=== PATIENT | male | born 1970 | race Caucasian/White ===

== ENCOUNTER 2016-05-03 23:40 | Inpatient (IN) | payer MEDICARE, MEDICAID ==
[~2016-05-03] VITALS: Ht 182.9 cm; Wt 99.8 kg
[~2016-05-03 23:40] MED LIST: AMBIEN10 MG PO; BENZONATATE200 MG PO; BROVANA15 MCG/2 M INH; CELEXA10 MG PO; COREG12.5 MG PO; CYCLOBENZAPRINE10 MG PO; DULCOLAX5 MG PO; FLUTICASONE PRO16 GM NASAL; GLUCOTROL 5 MG T5 MG PO; IPRAT-ALBUT 0.5-3 ML UPD; LACTINEX GRANUL1 PCK PO; LASIX40 MG PO; MIRALAX17 GM PO; MUCINEX DM ER1 EAC1 PO; NITROSTAT0.4 MG SL; NORVASC5 MG PO; OMNICEF300 MG PO; PHOSLO667 MG PO; PLAVIX75 MG PO; PRILOSEC20 MG PO; PRINIVIL20 MG PO; PULMICORT0.5 MG/21 UPD; REGLAN10 MG PO; SENSIPAR60 MG PO; STOOL SOFTENER100 M1 PO; ZITHROMAX250 MG PO
[2016-05-04] VITALS (14 sets, daily range): BP systolic 132–169; BP diastolic 63–99; Ht 182.9 cm; Wt 99.8 kg
--- NOTE | 2016-05-04 01:02 | NUR ---
PT ARRIVED TO THE FLOOR @ 23:45 05/03/16 VIA EMS STRETCHER, AWAKE, ALERT, ORIENTED, O2 PLACED ON 2.5 LPM. PTS ADMISSION WAS DELAYED R/T ADMISSION DEPT NOT PUTTING PT IN COMPUTER FOR OVER AN HOUR. WE ARE PLACING A HANDS FREE CALL LIGHT ON PTS BED SINCE PT IS A QUAD. OTHERWISE, NO ACUTE NEEDS AT THIS TIME. CONTINUE TO MONITOR CLOSELY.
--- NOTE | 2016-05-04 03:58 | NUR ---
ORDERS ADDED PER SHELLY BASILIO, STAKING ENGINEER FOR RENAL. PT IS RESTING COMFORTABLY AT THIS TIME, IN NO ACUTE DISTRESS. PTS EYES ARE CLOSED, RESPIRATIONS EVEN AND UNLABORED, PT DOES HAVE AN OCCAISIONAL COUGH, PRODUCIVE. CONTINUE TO MONITOR PT CLOSELY.
[2016-05-04] MEDS ORDERED: ULTRAM50 MG PO (04:48)
[2016-05-04 07:21] LABS: ALBUMIN 2.4 g/dL (3.4-5.0); ANION GAP 9.5 mmol/L (8-16); BILIRUBIN - TOTAL 0.4 mg/dL (0.2-1.3); CALCIUM 8.3 mg/dL (8.5-10.1); CARBON DIOXIDE 31.9 mmol/L (21.0-32.0); CREATININE - SERUM 5.3 mg/dL (0.6-1.3); POTASSIUM - SERUM 3.4 mmol/L (3.5-5.1); PROTEIN - SERUM 6.3 g/dL (6.4-8.2)
[2016-05-04 07:35] LABS: CREATINE KINASE 364 UL (21-232)
--- NOTE | 2016-05-04 08:04 | NUR ---
0750- AM ROUNDING, PT LAYING IN BED ON BACK WITH EYES CLOSED RESTING. PT IS ALERT AND ORIENTED. ON O2 AT 2.5L VIA NC. IV SEEN TO RIGHT HAND THAT IS SALINE LOCKED AND PATENT. ON LOVENOX FOR DVT PREVENTION. LEFT ARM RESERVE FOR AVF, PT DIALYZES ON M, W, AND F. HEP B +. 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 PER REPORT FROM CORPORATE CLAIMS EXAMINER NURSE RHIANNA, RHIANNA PUT IN WOUND CARE CONSULT FOR VERY REDDENED AREA ON BOTTOM. PT IS CURRENTLY REQUESTING CHEERIOS FOR BREAKFAST. CALLED DIETRY. WILL CONTINUE TO MONITOR. 0800- PAGED DR. WADE TO INFORM HIM OF PTS TROPONIN WHICH WAS 0.15 AND TO ALSO SEE ABOUT GETTING PT A LAXATIVE. XRAY CALLED AND STATED THAT THEY DID CHEST XRAY AROUND [address] ARCHER ORDERED ANOTHER ONE. WILL AWAIT CALL BACK AND SEE IF HE STILL WANTS CHEST XRAY.
--- NOTE | 2016-05-04 10:23 | NUR ---
WOUND CARE CONSULT: PT HAS NUMEROUS SKIN ISSUES NOTED FOLLOWS: 1- LEFT HEEL STAGE 1 PRESSURE INJURY 1.5CM X 1.5CM NON-BLANCHABLE 2- LEFT PLANTAR FOOT 2.5CM X 2.5CM CALLOUSED AREA - PROBABLE OLD PRESSURE INJURY 3- LEFT LATERAL FOOT/LOWER LEG NUMEROUS SCABS 4- LEFT BUTTOCK (AT ISCHIUM) - PINK - HEALED PRESSURE INJURY *HIGH RISK AREA 5- SACRUM STAGE 1 PRESSURE INJURY 5CM X 8CM NON-BLANCHABLE 6- RIGHT LATERAL FOOT/HEEL DISCOLORED BUT BLANCHABLE 7- BILATERAL HANDS/ARMS HAVE SCRATCHES AND SCABS RECOMMEND AIR OVERLAY MATTRESS D/T 1-HIGH RISK FOR FURTHER BREAKDOWN 2-INCONTINENT OF B&B 3-QUAD RECOMMEND TURN Q2 SCHEDULE MEPILEX SACRAL DRESSING TO PROTECT STAGE 1 PRESSURE INJURY MEPILEX DRESSINGS TO PROTECT HEELS KEEP HEELS BRIDGED WOUND CARE WILL CONTINUE TO MONITOR
[2016-05-04 11:31] LABS: CKMB 2.5 U/L (0.0-3.6); CREATINE KINASE 345 UL (21-232)
[2016-05-04 11:32] LABS: TROPONIN-I 0.161 ng/mL (0.000-0.060)
--- NOTE | 2016-05-04 11:33 | NUR ---
COMMERCIAL FISHING VESSEL OPERATOR CHECKED PTS BS PER ORDER AND NOTIFIED ME THAT PTS BS WAS 28. INITATED HYPOGYLCEMIC PROTOCOL AND GAVE 25ML OF DEXTROSE IV. WILL RECHECK PTS BS.
--- NOTE | 2016-05-04 11:43 | NUR ---
PT IS ALERT AND ORIENTED. ABLE TO DRINK APPLE JUICE AND EAT CRACKER. RECHECKED PTS BS WHICH IS 68. WILL CONTINUE WITH HYPOGLYCEMIC PROTOCOL AND CONTINUE TO MONITOR.
--- NOTE | 2016-05-04 12:08 | NUR ---
FSBS IS 78, NO FURTHER ACTION NECESSARY PER PROTOCOL. PT IS EATING LUNCH TRAY NOW. WILL CONTINUE TO MONITOR.
--- NOTE | 2016-05-04 13:13 | NUR ---
UPON CHANGING PT AFTER BOWEL MOVEMENT. EXCORIATION SEEN TO SACRUM AREA AND ON LEFT HEEL. WOUND CARE NURSE BRYAN IN PTS ROOM WITH ME ASSESSING PT. 1) LEFT HEEL STAGE 1 PRESSURE ULCER, 1.5CM X 1.5CM WITH NON-BLANCHABLE SKIN. 2) LEFT PLANTAR FOOT 2.5CM X 2.5CM CALLOUSED AREA. 3) LEFT LATERAL FOOT/LOWER LEG HAS MULTIPLE SCABS 4) LEFT BUTTOCK IS PINK WITH HEALED PRESSURE UCLER SEEN 5) SACRUM STAGE 1 PRESSURE UCLER 5CM X 8CM THAT IS NON-BLANCHABLE. 6) RIGHT LATERAL FOOT/HEEL DISCOLORED BUT BLANCHABLE. 7) BIALTERAL HANDS/ARMS HAVE SCRATCHES AND SCABS MEPILEX SACRUM APPLIED TO PROTECT STAGE 1 PRESSURE UCLER. MEPILEX DRESSING APPLIED TO BILATERAL HEELS TO PROTECT HEELS. HEELS RAISED ON PILLOW
--- NOTE | 2016-05-04 13:24 | NUR ---
DONAL MENEZES STATED PT WAS ACTING A LITTLE OUT OF IT. WENT AND CHECKED PTS BS, PTS FSBS WAS 46. GAVE PT 25ML OF DEXTROSE PER PROTOCOL AND PAGED SHELLY, NURSE PRACIONER. AWAITING CALL BACK.
--- NOTE | 2016-05-04 13:28 | NUR ---
Patient Name: JOSÉ ASHBY Admission Status: Elective Accout number: [id number] Admission Date: 05-03-2016 : 1970 Admission Diagnosis: Attending: ELEANOR Current LOS: 1 Anticipated DC Date: Planned Disposition: Home with Home Health Primary Insurance: MEDICARE A & B PLANNED EXTERNAL PROVIDER: [employer] [facility] [place] OFFICE Discharge Planning Comments: * Is the patient Alert and Oriented? Yes 0 * How many steps to enter\exit or inside your home? NONE 0 * PCP NONE 0 * Pharmacy [facility] [place] OR [facility] MAIL ORDER 0 * Preadmission Environment Home with Family 0 * ADLs Partial Dependent 0 * Partial ADLs (Assistance needed) Bathing Dressing Medication Management Toileting Transfers 0 * Equipment Bedside [facility]mode Hospital Bed Nebulizer Wheelchair 0 * Other Equipment [employer] [place] PATIENT - MEDICAL EQUIPMENT PROVIDER PREFERENCE 0 * List name and contact numbers for known caregivers / representatives who currently or will assist patient after discharge: BROTHER ALCOCER, 0 * Community resources currently utilized Home Health 0 * Please name any agencies selected above. [employer] [facility], 0 * Additional services required to return to the preadmission environment? No 0 * Can the patient safely return to the preadmission environment? Yes 0 * Has this patient been hospitalized within the prior 30 days at any hospital? No 0 CM MET WITH PT IN ROOM TO DISCUSS DISCHARGE PLANNING AND NEEDS. PT APPEARS TO BE VERY SLEEPY AND DRIFTS OFF TO SLEEP AFTER ANSWERING EACH QUESTION AND REQUIRES CM TO AWAKEN PT AGAIN. PT REPORTS LIVING AT HOME DEPENDENT ON HIS BROTHER AND HOME HEALTH AIDE. PT HAS HOSPITAL BED, WHEELCHAIR (MANUAL) BEDSIDE COMMODE AND NEBULIZER. PROVIDER IS [employer] [place] PATIENT. CM DISCUSSED AVAILABILITY OF HOME HEALTH, REHAB SERVICES AND MEDICAL EQUIPMENT. PT DENIES NEED FOR REHAB SERVICES, REPORTS HE WILL GO HOME AT DISCHARGE AND HOME HEALTH TO RESUME. PT HAS OUTPATIENT DIALYSIS ON M//, EARLY SHIFT, AT [facility]. PT'S BROTHER TRANSPORTS PT TO AND FROM DIALYSIS. PT REPORTS HIS BROTHER WILL PICK HIM UP AT DISCHARGE. CM CALLED BROTHER ALCOCER, , LEFT MESSAGE ASKING FOR RETURN CALL. CM CALLED [facility] [address] (VISITING NURSES), , WAS ADVISED THAT PT DOES NOT HAVE SKILLED OR UNSKILLED SERVICES THROUGH [facility]. CM CALLED [facility], , SPOKE TO JOI WHO VERIFIED PT IS ACTIVE WITH [facility] [place] FOR NURSING, PHYSICAL THERAPY AND AIDE SERVICES. CM SPOKE TO LETTY OF [employer] WHO ADVISED THAT PT WAS IN RADIO MECHANIC HELPER CARE IN [facility] FOR ABOUT A YEAR BEFORE GOING TO LIVE WITH HIS BROTHER. ADULT PROTECTIVE [employer]ICES HAS CHECKED INTO PT'S HOME SITUATION. HOME HEALTH HAS BEEN UNSUCCESSFUL IN GETTING PT TO AGREE TO PRISON CARE AGAIN IN A RETIREMENT. LETTY ADVISED THAT SHE THINKS THAT PT RIDES THE [employer] BUS (MEDICAID TRANSPORT) TO AND FROM DIALYSIS. DR. MOLINA HAS BEEN FOLLOWING HOME HEALTH ORDERS. CM FAXED UPDATE TO [employer] AT [phone]. TO RESUME HOME HEALTH AT DISCHARGE, NOTIFY [employer] AT [phone], FAX DISCHARGE INFORMATION TO [employer] AT [phone]. CM TO FOLLOW AND ASSIST NEEDED. Oncology Physician Assistant: Donnie Jarvis
--- NOTE | 2016-05-04 13:36 | NUR ---
RECHECKED PTS BS, PTS FSBS IS 92. PT IS ALERT AND DRINKING APPLE JUICE. DR. WADE ON UNIT AND WAS NOTIFIED. DR. WADE INSTRUCTED DONAL MENEZES TO GIVE PT APPLE JUICE. APPLE JUICE GIVEN. WILL CONTINUE TO MONITOR.
--- NOTE | 2016-05-04 13:50 | NUR ---
DR. ARCHER ON UNIT. INFORMED HIM OF PTS B/S DROPPING. DR. ARCHER STATED THAT TO START HIM ON D10 AT 20ML/HR. NEW ORDERS RECEIVED. WILL CONTINUE TO MONITOR.
--- NOTE | 2016-05-04 14:04 | NUR ---
DISCHARGE PLANNING FOLLOW UP NOTE: CM RECEIVED RETURN CALL FROM GUERA ASHBY, . GUERA PROVIDED HIS 'S NUMBER FOR CONTACT IF NEEDED: JESSICA ASHBY, . GUERA REPORTS THAT HE AND HIS ASSIST PT WITH CARE AT HOME. THEY ARE ABLE TO TRANSPORT PT IN GUERA'S CAR NEEDED. GUERA WILL HAVE A FRIEND TO HOSPITAL CHIEF FINANCIAL OFFICER PT FOR TRANSPORT HOME AT DISCHARGE. THEY HAVE A CHRIS LIFT AT HOME TO ASSIST WITH LIFTING AT HOME. PT'S CHAIR TIME IS APPROXIMATELY 0900 AM FOR DIALYSIS. PT TAKES THE MEDICAID BUS FROM [facility] ON [address] TO AND FROM DIALYSIS. PT DID NOT GO TUESDAY BECAUSE PT WAS SICK AND GUERA THOUGHT THAT DIALYSIS STAFF DID NOT WANT PT THERE TO MAKE OTHER PT'S SICK. CM DISCUSSED SENIOR CARE REHAB AND PLACEMENT OPTIONS. GUERA REPORTS THAT PT WILL NOT CONSENT TO [facility] AND THEY PLAN TO BRING PT BACK HOME AND CONTINUE HIS CARE AT HOME. TO RESUME HOME HEALTH AT DISCHARGE, NOTIFY [facility] AT [phone], FAX DISCHARGE INFORMATION TO [facility] AT [phone]. CM TO FOLLOW AND ASSIST NEEDED. RANDAL OSMAN, CASE MANAGEMENT
--- NOTE | 2016-05-04 14:06 | NUR ---
D10 STARTED ORDERED AT 20CC/HR. WILL CONTINUE TO MONITOR.
--- NOTE | 2016-05-04 14:10 | NUR ---
PATIENT PATHWAYS - Patient's In-Center HD unit is [facility] on a Mon/Wed/Fri per notes in chart. Records forwarded to the clinic for their charts. MADONNA PRL
--- NOTE | 2016-05-04 14:26 | NUR ---
PT USED CALL LIGHT AND STATED HE DIDN'T FEEL RIGHT. CHECKED PTS BS. FSBS IS 39. FOLLOWED HYPOGLYCEMIC PROTOCOL AND GAVE PT ORAL GLUCOSE GEL AND A CUP OF APPLE JUICE. PT IS ON D10 AT 20CC/HR. WILL RECHECK PTS BS AND CONTINUE TO MONITOR.
--- NOTE | 2016-05-04 14:38 | NUR ---
RECHECKED PTS BS, PTS FSBS WAS 42. GAVE 25ML OF DEXTROSE PER PROTOCOL AND TALKED TO DR. ARCHER THAT IS ON UNIT. DR. ARCHER STATED TO TURN PTS IV FLUID (D10) UP TO 40CC/HR. WILL RE-CHECK PTS BS AND CONTINUE TO MONITOR.
--- NOTE | 2016-05-04 14:57 | NUR ---
FSBS RECHECK 86. NO ACTION NEEDED AT THIS TIME. PT IS VERY DROWSY BUT WAKES EASILY TO VOICE. D10 INFUSING VIA R.HAND PIV WITH DRSG CDI AND SWAB CAPS IN USE. WILL CPOC AND MONITER CLOSELY.
--- NOTE | 2016-05-04 15:22 | NUR ---
1200- PT TURNED TO RIGHT SIDE WITH HELP OF DONAL MENEZES.
--- NOTE | 2016-05-04 15:36 | NUR ---
RECHECKED PTS BS WHICH IS 45. CONTINUED PROTOCOL AND GAVE PT 25ML OF DEXTROSE. PT DRINKING APPLE JUICE AND EATING SANDWICH. WILL RECHECK BS.
--- NOTE | 2016-05-04 15:46 | NUR ---
INCREASED PTS IV FLUID (D10) TO 100CC/HR ORDERED BY DR. ARCHER. WILL CONTINUE TO MONITOR.
--- NOTE | 2016-05-04 16:20 | NUR ---
PT PLACED ON FIRST STEP OVERLAY MATTRESS.
--- NOTE | 2016-05-04 16:27 | NUR ---
CHECKED PTS BS, 42. GAVE PT 25ML OF DEXTROSE PER PROTOCOL. WILL RECHECK PTS BS. PT IS LAYING IN BED WITH EYES OPEN. STATED HE FEELS OK. WILL CONTINUE TO MONITOR.
--- NOTE | 2016-05-04 16:55 | NUR ---
CALLED REPORT TO ICU. SPOKE WITH JEN RANGEL. GAVE HER REPORT AND INFORMED HER OF THE SITUAION WITH PTS BS. TRIED TO GIVE CLAIRE A FULL REPORT ON PT AND HX INFORMATION AND CLAIRE STATED TO "JUST TELL ME MORE ABOUT THE BLOOD SUGAR SITUAION", SO I CONTINUED TO TELL HER ABOUT PTS BS SITUATION. WILL PROCEED TO TRANSFER PT TO ICU AND CONTINUE TO MONITOR.
--- NOTE | 2016-05-04 17:31 | NUR ---
1700- CALLED REPORT TO ICU AND SPOKE JEN RANGEL. GAVE REPORT AND INFORMED HER OF WHY PT IS BEING SENT TO ICU (HYPOGLYCEMIA).
--- NOTE | 2016-05-04 17:33 | NUR ---
TRANSFERRED PT TO ICU VIA BED.
--- NOTE | 2016-05-04 17:59 | NUR ---
1715 PT RECIEVED FROM [facility] 2 VIA BED WITH AIROVERLAY MATTRESS ON BE PT IS A QUAD WITH O2 AT 2 LITERS.. FSBE DONE ON ARRIVAL AND RESULTS ARE 55.. D110 W HANGING RATE CHANGED TO 40CC/HR ON ARRIVAL DOWN FROM 100CC/HR..AND AN AMP OF 550 GIVEN INTO PIV IN RIGHT HAND.. PT IS AWAKE AND RESPONSIVE APPROPRIATLY.. AUDIBLE WHEEZES ON RESPIRATIONS.. 1800 FSBS 84 PT ASSISTED WITH DIET.. REMAINS APPROPRIATE IN RESPONSES.. WATCHING TV AT THIS TIME..
[2016-05-04 18:07] LABS: CKMB 3.1 U/L (0.0-3.6); CREATINE KINASE 344 UL (21-232)
[2016-05-04 18:18] LABS: GLUCOSE 49 mg/dL (74-106)
--- NOTE | 2016-05-04 18:18 | NUR ---
1800 WITHOUT VISITORS AT THIS TIME..
[2016-05-04 18:19] LABS: TROPONIN-I 0.135 ng/mL (0.000-0.060)
--- NOTE | 2016-05-04 19:13 | NUR ---
1900 FSBS DONE AND COVERED WITH D50 REMAINS ON D10 DRIP..
--- NOTE | 2016-05-04 19:20 | NUR ---
PACKER OPERATOR AUTOMATIC PER FLOWSHEET. PT AWAKE AND ORIENTED, VSS. TURNED FOR COUGH AND DB - STOOL NOTED, ASSIST WITH REMOVAL OF LARG AMT FORMED STOOL. DSG CHANGE TO BUTTOCKS - HEALING STAGE 2 NOTED. REPOSITIONED UP IN BED - DSG CHANGE TO B/L HEELS PER ORDERS - HEALING STAGE 2. LUNGS CTA, NO SIGN OF DISTRESS. PT ABLE TO COMMUNICATE NEEDS. ARMS CONSTRICTED TOWARD CHEST - ABLE TO STRETCH OUT WITH ASSIST. L ARM FISTULA NOTED. ROM DONE, HEELS BRIDGED, AIR OVERLAY IN USE.
--- NOTE | 2016-05-04 21:00 | NUR ---
NO VISITORS, RESTING WITH EYES CLOSED. PREV FSBS 135.
--- NOTE | 2016-05-04 21:35 | NUR ---
PT C/O SAVAGE - ADMIN PRN ULTRAM AND HS MEDS. NO DIFFICULTY SWALLOWING.
--- NOTE | 2016-05-04 21:55 | NUR ---
NEW 20GA PIV SITED TO R AC X 1 STICK. FSBS 39 - ADMIN D50 IV PER PRN ORDER. PT ASYMPTOMATIC, "JUST STARTING FEELING LIKE IT WAS LOW"..
--- NOTE | 2016-05-04 22:45 | NUR ---
TO CT VIA BED WITH ICU NURSE.
--- NOTE | 2016-05-04 23:16 | NUR ---
BACK TO ROOM
[2016-05-05] VITALS (24 sets, daily range): BP systolic 116–176; BP diastolic 46–76
--- NOTE | 2016-05-05 01:22 | NUR ---
PT REPOSITIONED UP IN BED TO R SIDE, GOOD COUGH. RECHECK FSBS 57 - ADMIN D50 IV PER PROTOCOL
--- NOTE | 2016-05-05 06:00 | NUR ---
NO VISITORS. AM LAB PENDING. SEE FSBS FLOWSHEET. PT COOPERATIVE, DENIES NEEDS.
[2016-05-05 06:09] LABS: BASOPHILS 0.1 % (0.0-2.0); EOSINOPHILS 0.1 % (0-7); HEMATOCRIT 26.1 % (42.0-54.0); HEMOGLOBIN 8.7 g/dL (13.5-17.5); IMMATURE GRANULOCYTES 0.3 % (0-5); LYMPHOCYTES 8.1 % (15-50); MCHC 33.3 g/dL (31.0-37.0); MEAN PLATELET VOLUME 9.4 fL (7.4-10.4); MONOCYTES 5.8 % (2-11); NEUTROPHILS 85.6 % (40-80); PLATELET COUNT 108 10x3/uL (130-400); WBC 6.9 10x3/uL (4.8-10.8)
[2016-05-05 06:32] LABS: ANION GAP 11.3 mmol/L (8-16); BILIRUBIN - DIRECT 0.15 mg/dL (0.00-0.30); BILIRUBIN - INDIRECT 0.25 mg/dL (0.00-1.00); BILIRUBIN - TOTAL 0.4 mg/dL (0.2-1.3); CARBON DIOXIDE 28.1 mmol/L (21.0-32.0); PHOSPHOROUS 3.1 mg/dL (2.5-4.9); POTASSIUM - SERUM 3.4 mmol/L (3.5-5.1); PROTEIN - SERUM 6.3 g/dL (6.4-8.2)
--- NOTE | 2016-05-05 07:00 | NUR ---
REC'D REPORT AND RESUMED CARE, AWAKE AND ORIENTED, VSS, FSBS 47, 1 AMP D50 GIVEN PER ORDER AND STAT LAB ORDERED, PATIENT IS PARAPLEDGIC, BLOW LIGHT IN USE, O2 VIA NC AT 2L, VSS, RIGHT ADC WITH D10 INFUSING AT 100 CC/HR, RIGHT HAND 24G SL, AIR OVERLAY MATTRESS IN USE, ASSESSMENT COMPLETE PER FLOWSHEET, REPOSITIONED TO RIGHT SIDE WITH PILLOW PROPPED TO BACK AND HEELS FLOATED, MEPILEX DRESSING B/L NOTED ON HEELS, ASSESSMENT COMPLETED PER FLOWSHEET, NO NEEDS AT THIS TIME
--- NOTE | 2016-05-05 08:30 | NUR ---
AM MEDS GIVEN AND TAKEN WITHOUT DIFFICULTY
--- NOTE | 2016-05-05 09:22 | NUR ---
NUTRITION MONITORING & EVAL PT NOW IN ICU. NURSING REPORTS PT WITH NO RECENT PO INTAKE. "TRYING TO KEEP HIS BLOOD SUGAR UP". RD FOLLOWING
--- NOTE | 2016-05-05 11:00 | NUR ---
ASSESSMENT COMPLETE NO ACUTE CHANGE FROM PREVIOUS SEE FLOWSHEET
--- NOTE | 2016-05-05 11:20 | NUR ---
HD BEGAN, FISTULA CANUALATED WITHOUT DIFFICULTY, VSS, NO NEEDS AT THIS TIME, BLOW LIGHT POSITIONED TO MOUTH FOR USE
--- NOTE | 2016-05-05 12:30 | NUR ---
D50 INFUSION INTITIATED PER ORDER AT 50 CC/HR, FSBS 47, ON HD AT THIS TIME, NOT SYMPTOMATIC, FOOD OFFERED, PEANUT BUTTER AND VALERIA CRACKERS EATEN, 1/2 CARTON MILK DRANK
--- NOTE | 2016-05-05 14:22 | NUR ---
HD COMPLTED, 3.5 L OFF, VSS, SEE FLOWSHEET, AWAKE AND ALERT, NO NEEDS AT THIS TIME
--- NOTE | 2016-05-05 14:54 | NUR ---
Mr. Leonard had bedide hemodialysis today via his left lower arm av fistula from 1120 until 1422. Average blood flow was 350 mls/minute. Net fluid removed was 3500 mls. Post vital signs were: B?P: 127/52, HR: 64, Temp: 97.9, Resps: 18.
--- NOTE | 2016-05-05 15:00 | NUR ---
ASSESSMENT COMPLETE, NO ACUTE CHANGE FROM PREVIOUS, VSS, NO SIGNS OF DISTRESS, VSS, DENIES PAIN, REPOSITONED TO LEFT SIDE WITH PILLOW PROPPED TO BACK AND HEELS FLOATED, NO OTHER NEEDS AT THIS TIME, BLOW LIGHT IN USE
--- NOTE | 2016-05-05 18:17 | NUR ---
PC TO DR SAM, NEW ORDERS GIVEN FOR ZOFRAN 4 MG IVP Q4P, AND MUCINEX DM 2 TABS BID FOR NAUSEA AND COUGHING
--- NOTE | 2016-05-05 18:48 | NUR ---
C/O OF NAUSEA, ZOFAN 4 MG IVP GIVEN PER ORDER, COOL COMPRESSES ON NECK, NO EMESIS
--- NOTE | 2016-05-05 19:00 | NUR ---
REPORT RECEIVED AND ASSESSMENT COMPLETED. SEE FLOW SHEET FOR DETAILS. PT ON D50 DRIP @ 60. BLOOD SUGAR IN THE 90'S. WILL CONTINUE TO MONITOR CLOSELY. FOR HYPO AND HYPERGLYCEMIA.
--- NOTE | 2016-05-05 21:00 | NUR ---
2100 MEDS GIVEN. FSBS WNL. NO OTHER CHANGES IN STATUS AT THIS TIME. PT REPOSITIONED FOR COMFORT. VSS. WILL MONITOR.
--- NOTE | 2016-05-05 23:00 | NUR ---
REASSESSMENT COMPLETED. SEE FLOWSHEET.
[2016-05-06] VITALS (23 sets, daily range): BP systolic 135–167; BP diastolic 50–75
--- NOTE | 2016-05-06 00:37 | NUR ---
MOST RECENT FSBS 102
--- NOTE | 2016-05-06 01:00 | NUR ---
VSS. FINGER STICKS STABLE IN LOW 100'S. NO OTHER CHANGES IN STATUS AT THIS TIME.
--- NOTE | 2016-05-06 03:00 | NUR ---
REASSESSMENT COMPLETED SEE FLOWSHEET
[2016-05-06 03:50] LABS: BASOPHILS 0.1 % (0.0-2.0); EOSINOPHILS 0 % (0-7); HEMATOCRIT 23.8 % (42.0-54.0); HEMOGLOBIN 7.9 g/dL (13.5-17.5); IMMATURE GRANULOCYTES 0.1 % (0-5); LYMPHOCYTES 10.9 % (15-50); MCHC 33.2 g/dL (31.0-37.0); MCV 87.5 fL (80.0-100.0); MEAN PLATELET VOLUME 9.6 fL (7.4-10.4); MONOCYTES 9.3 % (2-11); NEUTROPHILS 79.6 % (40-80); PLATELET COUNT 119 10x3/uL (130-400); RBC 2.72 10x6/uL (4.20-6.10); RDW 14.8 % (11.5-14.5); WBC 7.6 10x3/uL (4.8-10.8)
[2016-05-06 03:59] LABS: APTT 39.9 SECONDS (22.8-39.4); INR 1.02 (0.85-1.17); PROTIME 13.2 SECONDS (11.6-15.0)
[2016-05-06 04:00] LABS: ANION GAP 6.8 mmol/L (8-16); CALCIUM 7.6 mg/dL (8.5-10.1); CARBON DIOXIDE 32.7 mmol/L (21.0-32.0); CREATININE - SERUM 4.4 mg/dL (0.6-1.3); PHOSPHOROUS 2.3 mg/dL (2.5-4.9); POTASSIUM - SERUM 3.5 mmol/L (3.5-5.1)
--- NOTE | 2016-05-06 05:00 | NUR ---
CHLORHEXIDINE BATH GIVEN FOR AM PROCEDURE. NO OTHER CHANGES AT THIS TIME.
--- NOTE | 2016-05-06 08:03 | CN ---
PATIENT NAME:JOSÉ ASHBY MEDICAL RECORD: [id number] : 72 LOCATION:[id number] ADMIT DATE: 05/03/16 ACCOUNT: [id number] CONSULTING PHYSICIAN: YAMILET HOLBROOK MD REFERRING PHYSICIAN: CLAUDIO ARCHER MD DATE OF CONSULTATION: 05/05/2016 Surgical Consultation SURGEON: Yamilet Holbrook MD. REASON FOR CONSULTATION: IV access. HISTORY OF PRESENT ILLNESS: This 45-year-old paraplegic gentleman who was admitted with worsening pneumonia and shortness of breath. He had been sick for the last several days. He is wheezing and coughing. He has been running a fever at home. The patient is bedbound, he is quadriplegic. PAST MEDICAL HISTORY: Asthma, COPD, congestive heart failure, end-stage renal disease on hemodialysis, history of DVT, history of hypertension, coronary artery disease and quadriplegia. PAST SURGICAL HISTORY: Amputation of the toe, a fistula and stent placement. He has a HemoSplit at this time. ALLERGIES: LEVAQUIN, PENICILLIN, HYDROCODONE AND ACETAMINOPHEN. MEDICATIONS: Include Rocephin and Zithromax. SOCIAL HISTORY: He is a current everyday smoker. He is a nondrinker. FAMILY HISTORY: No family history of cardiac disease or cancer. REVIEW OF SYSTEMS: Twelve-point review of systems obtained, pertinent positives and negatives as per the HPI. PHYSICAL EXAMINATION: GENERAL: He is lying in bed. He is on nasal cannula. VITAL SIGNS: Blood pressure 140/83, pulse 68, respirations 18 and temperature 97.3. EYES: Extraocular muscles are intact. Sclerae nonicteric. EAR, NOSE AND THROAT: Mucous membranes are dry. Poor dentition. CHEST: Decreased breath sounds bilaterally with bilateral crackles. HEART: Normal sinus rhythm. No murmur. ABDOMEN: Soft, nontender and nondistended. EXTREMITIES: No cyanosis or clubbing. He does have marked contracture of all 4 extremities. LABORATORY DATA: Reviewed. Please see electronic medical record for full list of laboratory data. Chest x-ray reviewed, there is a right-sided pleural effusion with infiltrates. IMPRESSION: 1. Pneumonia. 2. Hypoxia with respiratory failure. CONSULT REPORT [id number] JOSÉ ASHBY 3. End-stage renal disease. 4. Chronic obstructive pulmonary disease. 5. Peripheral IV access insufficiency. RECOMMENDATION: Urgent placement of central venous access line. Risk and benefits reviewed with the patient. Consent obtained. TRANSINT:[id number] Voice Confirmation ID: [id number] DOCUMENT ID: [id number] YAMILET HOLBROOK MD at 0803 CC: [id number] DICTATION DATE: 05/05/16 180 DIRECTOR INBOUND SALES: 05/05/16 [address] [place] [address]
--- NOTE | 2016-05-06 08:04 | OP ---
PATIENT NAME: JOSÉ ASHBY MEDICAL RECORD: [id number] :72 LOCATION:[facility] D.2315 ADMISSION DATE:05/03/16 SURGEON: YAMILET HOLBROOK MD DATE OF OPERATION: 05/05/2016 PREOPERATIVE DIAGNOSES: Peripheral IV access insufficiency, pneumonia, chronic obstructive pulmonary disease and hypoxic respiratory failure. POSTOPERATIVE DIAGNOSES: Peripheral IV access insufficiency, pneumonia, chronic obstructive pulmonary disease and hypoxic respiratory failure. PROCEDURE PERFORMED: Ultrasound-guided right internal jugular central venous lines placement ANESTHESIA: Local. COMPLICATIONS: None. SPECIMENS: None. Case was clean. OPERATIVE COURSE: After consent was obtained, the patient was placed in the supine position in his ICU bed. A shoulder roll was placed. The patient was placed in Trendelenburg position. Timeout was taken to confirm the correct patient and procedure. The right chest and neck were prepped and draped in typical sterile fashion. Local anesthetic was administered. The right internal jugular vein was identified with the ultrasound probe. The internal jugular vein was accessed under ultrasound guidance. Blood was aspirated. The needle was removed. The angiocatheter was left in place. The wire was passed through the angiocatheter. The angiocatheter was removed. A stab incision was made with an 11-blade scalpel. The dilator was passed over the wire in a standard Seldinger fashion. Triple lumen catheter was then passed over the wire in a standard Seldinger fashion. The wire was removed. The catheter was secured to the skin with 2-0 silk suture. A Biopatch was placed as well as a sterile Tegaderm dressing. All 3 ports were aspirated and flushed. At the end of the procedure, all needle and instruments counts were correct. No complications occurred. Post-procedure chest x-ray was performed. TRANSINT:[id number] Voice Confirmation ID: [id number] DOCUMENT ID: [id number] YAMILET HOLBROOK MD at 0804 CC: [id number] DICTATION DATE: 05/05/161800 PERSONAL ATTENDANT: 05/05/16 [address] [place] [address]
--- NOTE | 2016-05-06 16:10 | NUR ---
0800 AM ASSESMENT IS COMPLETE SEE FLOW SHEET FOR FIDNINGS.. PT ON AIROVERLAY MATTRESS IN THE ICU.. THERE IS C CVL IN THE LEFT JUGULAR WITH D50W INFUSING AT 60CC/HR.. PT IS A QUAD ABLE TO MAKE NEEDS KNOWN.. 0830 CT HERE AND STATED THAT PT CT GUIDED THORACOTOMY IS HELD FOR TODAY , PT ON PLAVIX.. DR SAM IN THE UNIT AND INFORMED PLAVIX HELD BY HIM AND JANNA SNELL. 0900 WIHTOUT VISITORS AT THIS TIME.. 1000 FSBS DONE.. [address] SAM HERE AND [id number] DECREASED PER FLACO VO 1300 DIET FED TO PT AND A SMALL AMT TAKEN PT IS WITHOUT C/O AT THIS TIME... 1400 BS DONE D50 DECREASED TO 20CC 1500 WITHOUT VISITOR.. 1530 LAB DRAWN 1600 FSBS AND D50W DC AT THIS TIME///
--- NOTE | 2016-05-06 19:15 | NUR ---
REPORT RECEIVED AND CARE TAKEN OVER. INITIAL ASSESSMENT COMPLETE. PATIENT IS QUADRIPLEGIC BUT ABLE TO COMMUNICATE, CALL LIGHT DEVICE IN PLACE. IS ON OVERLAY MATTRESS. CENTRAL LINE IN RIGHT JUGULAR IS IN PLACE, DRESSING IS C/D/I. SALINE LOCKED AT THIS TIME. DENIES NEED AT THIS TIME, VSS, SEE ASSESSMENT FLOWSHEET FOR MORE DETAILS.
--- NOTE | 2016-05-06 20:00 | NUR ---
PATIENT REPOSITIONED PER REQUEST. BLOOD SUGAR TAKEN. DENIES FURTHER NEED.
--- NOTE | 2016-05-06 21:00 | NUR ---
NO VISITORS AT THIS TIME. ICE CHIPS GIVEN UPON REQUEST.
--- NOTE | 2016-05-06 23:00 | NUR ---
REASSESSMENT COMPLETE, NO ACUTE CHANGES AT THIS TIME. VSS, WILL CONTINUE TO MONITOR.
[2016-05-07] VITALS (24 sets, daily range): BP systolic 145–185; BP diastolic 57–94
--- NOTE | 2016-05-07 01:00 | NUR ---
PATIENT DENIES NEED, VSS, WILL MONITOR.
--- NOTE | 2016-05-07 03:00 | NUR ---
REASSESSMENT COMPLETE. NO CHANGES, WILL CONTINUE TO MONITOR.
[2016-05-07 04:27] LABS: BASOPHILS 0 % (0.0-2.0); EOSINOPHILS 0 % (0-7); HEMATOCRIT 23.5 % (42.0-54.0); HEMOGLOBIN 7.8 g/dL (13.5-17.5); IMMATURE GRANULOCYTES 0.2 % (0-5); LYMPHOCYTES 13.2 % (15-50); MCH 29.4 pg (26.0-34.0); MCHC 33.2 g/dL (31.0-37.0); MCV 88.7 fL (80.0-100.0); MEAN PLATELET VOLUME 9.5 fL (7.4-10.4); NEUTROPHILS 79.6 % (40-80); PLATELET COUNT 115 10x3/uL (130-400); RBC 2.65 10x6/uL (4.20-6.10); WBC 5.8 10x3/uL (4.8-10.8)
[2016-05-07 04:43] LABS: ANION GAP 10.1 mmol/L (8-16); CALCIUM 7.6 mg/dL (8.5-10.1); CARBON DIOXIDE 29.3 mmol/L (21.0-32.0)
[2016-05-07 04:45] LABS: CREATININE - SERUM 5.7 mg/dL (0.6-1.3); PHOSPHOROUS 4.1 mg/dL (2.5-4.9); POTASSIUM - SERUM 4.4 mmol/L (3.5-5.1)
--- NOTE | 2016-05-07 05:00 | NUR ---
PATIENT REPOSITIONED FOR COMFORT, DENIES NEED OR PAIN AT THIS TIME.
--- NOTE | 2016-05-07 06:39 | NUR ---
DR MORSE PAGED ABOUT INCREASING BP. STATED HE WAS OKAY WITH CURRENT BP SINCE PATIENT WILL RECEIVE DIALYSIS TODAY.
--- NOTE | 2016-05-07 09:40 | NUR ---
NUTRITION MONITORING & EVAL CHART REVIEWED. PT NPO AND OOR FOR PROCEDURE. WILL CONTINUE TO MONITOR PT PROGRESS, DIET ADVANCEMENT. RD FOLLOWING
[2016-05-07 10:57] LABS: PROTEIN - BODY FLUID 2.2 G/DL
[2016-05-07 11:17] LABS: C-PEPTIDE 10.3 ng/mL (1.1-4.4); INSULIN 32.8 uIU/mL (2.6-24.9)
[2016-05-07 12:05] LABS: EOS BF 1 %; LYMPH - BF 46 %; MACROPHAGES BF 16 %; MESOTHELIALS BF 1 %; NEUT - BF 36 %
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
[2016-05-07] MEDS ORDERED: CARDURA1 MG PO (12:44)
[2016-05-07] MEDS ORDERED: CEFUROXIME250 MG PO (12:48)
--- NOTE | 2016-05-07 12:53 | NUR ---
PATIENT'S BROTHER, GUERA ASHBY, PHONED TO CHECK ON HIS MEDICAL STATUS. HIS NURSE, TARA, SPOKE WITH HIM AND WAS ABLE TO GIVE A LIST OF HIS HOME MEDICATIONS. PATIENT'S BROTHER'S , JESSICA IS THE CAREGIVER THAT SETS UP HIS MEDS. GUERAKiet FRANKS JESSICA ASHBY [phone].
--- NOTE | 2016-05-07 16:58 | NUR ---
6159-PT NPO-TO SPECIALS/CT FOR SCHEDULED THORACENTESIS-R SIDE 1030-RETUREND TO -DR ARCHER AT BEDSIDE-REVIEWED WITH PT CURRENT TREATMENT PLAN-2 UNITS PRBC ON DIALYSIS TODAY-CONT TO MONITOR FSBS-REMAIN ON O2 AT 2L PHYSICAL THERAPY TO BEGN IN HOSPITAL TREATMENT PLAN FOR MAX ROM-NOT CONTRACTURE TO BOTH ARMS AND FISTING OF HANDS-PT STATED FEELS SEVERE MUSCLE SPASM PAIN TO ARMS WHEN EXTENDED-VERBALLY STATED THAT WAS TOLD MAY REGAIN USE OF HANDS 1230BLOOD CONSENT GIVEN VERBALLY AND WITNESSED BY 2 RN 8530-PHYSICAL THERAPY AT BEDSIDE- 9902-DIALYSIS SET UP AT [facility]-PRBC AVAILABLE TO GIVE WHILE ON DIALYSIS
--- NOTE | 2016-05-07 19:16 | NUR ---
Mr. Leonard had bedside hemodialysis today via his left arm av fistula from 1513 until 1814. Average blood flow was 300-400 mls/minute. Transfused two units of prbc's. Removed 700 mls from the prbc's as well as a net of 3500 mls. Post vital signs were: B/P: 176/83, HR: 60, Temp: 98.3, Resps: 18.
--- NOTE | 2016-05-07 19:20 | NUR ---
INITIAL ASSESSMENT COMPLETE, PATIENT IS ALERT AND ORIENTED X4, RONCHI HEARD WITH LUNG SOUNDS. PATIENT HAD RIGHT SIDED THORACENTESIS TODAY. SITE IS C/D/I. S1S2 NOTED, BOWEL SOUNDS ACTIVE. FISTULA IN LEFT FOREARM, THRILL AND BRUIT PRESENT. PERIPHERAL PULSES +2. SEE ASSESSMENT FLOWSHEET FOR MORE DETAILS. DIALYSIS IN ROOM AT THIS MOMENT FINISHING UP.
--- NOTE | 2016-05-07 21:00 | NUR ---
NIGHT MEDS GIVEN, PATIENT DENIES NEED.
--- NOTE | 2016-05-07 23:05 | NUR ---
REASSESSMENT COMPLETE, NO CHANGES FROM PREVIOUS ASSESSMENT. SEE REASSESSMENT FLOWSHEET FOR DETAILS.
[2016-05-08] VITALS (18 sets, daily range): BP systolic 16–172; BP diastolic 55–91
--- NOTE | 2016-05-08 01:00 | NUR ---
PATIENT RESTING IN BED WITH EYES CLOSED, VSS, WILL CONTINUE TO MONITOR.
--- NOTE | 2016-05-08 03:00 | NUR ---
REASSESSMENT COMPLETE, NO ACUTE CHANGES, SEE FLOWSHEET FOR DETAILS.
--- NOTE | 2016-05-08 05:00 | NUR ---
ICE GIVEN PER REQUEST, REPOSITIONED FOR COMFORT.
[2016-05-08 05:06] LABS: BASOPHILS 0 % (0.0-2.0); EOSINOPHILS 0 % (0-7); IMMATURE GRANULOCYTES 0.2 % (0-5); LYMPHOCYTES 12.2 % (15-50); MCH 28.7 pg (26.0-34.0); MCHC 33.2 g/dL (31.0-37.0); MEAN PLATELET VOLUME 9.5 fL (7.4-10.4); NEUTROPHILS 79.6 % (40-80); PLATELET COUNT 101 10x3/uL (130-400); RDW 15.4 % (11.5-14.5)
[2016-05-08 05:09] LABS: HEMATOCRIT 29.2 % (42.0-54.0); HEMOGLOBIN 9.7 g/dL (13.5-17.5); MCV 86.4 fL (80.0-100.0); RBC 3.38 10x6/uL (4.20-6.10)
[2016-05-08 05:22] LABS: ANION GAP 9.3 mmol/L (8-16); CALCIUM 7.5 mg/dL (8.5-10.1); CARBON DIOXIDE 30.8 mmol/L (21.0-32.0); CREATININE - SERUM 4.9 mg/dL (0.6-1.3); PHOSPHOROUS 3.9 mg/dL (2.5-4.9); POTASSIUM - SERUM 4.1 mmol/L (3.5-5.1)
--- NOTE | 2016-05-08 07:00 | NUR ---
REC'D REPORT FROM OUTGOING RN, PT AA&O X 4, pT SUPINE IN BED WATCHING TELEVISION, PT IS ABLE TO MAKE NEEDS KNOWN - BLOW CALL LIGHT IN PLACE FOR PT TO CONTACT RN. PT ABLE TO DENOMSTRATE USE OF BLOW CALL LIGHT.
--- NOTE | 2016-05-08 08:00 | NUR ---
ACCU CHECK AT 95 - PT VOICED NO NEEDS AT THIS TIME.
--- NOTE | 2016-05-08 08:30 | NUR ---
ASSESMENT COMPLETE - PT DENIED ANY NEEDS LAUNDRY AID AVAILABLE TO ASSIST FEEDING PT.
--- NOTE | 2016-05-08 10:00 | NUR ---
MEDICAITONS GIVEN. PT REQUESTED TO HAVE HOB LOWERED AND VOICED NO OTHER NEEDS ACCU CHECK AT 125 CONTINUE POC
--- NOTE | 2016-05-08 11:00 | NUR ---
DR. BRAMBILA AT [facility] - POS AT 98% ON 2L/NC. INSTRUCTED TO D/C O2 AND MONITOR FOR HYPOXIA - POX AT 97% ON RA. ORDERED TRANSFERR TO THE FLOOR CHANGE ACCU CHECK TO Q6 HOURS.
--- NOTE | 2016-05-08 11:20 | NUR ---
PAGED DR. BOYD TO REVIEW PULMONOLGY TRANSFER DIRECTION.
--- NOTE | 2016-05-08 11:25 | NUR ---
SPOKE TO DR. BOYD - APPOLIGIZED FOR PAGING MD - CORRECTLY PAGED DR. ARCHER - TO REVIEW DR. SAM'S REOMMENDATIONS. (CHANGE ACCU CHECK TO Q6 HOURS, STOP O2, AND TRANSFER PT TO FLOOR) DR. ARCHER AGREED TO PLAN OF CARE. TOV AND ENTERED PER POLICY.
--- NOTE | 2016-05-08 12:00 | NUR ---
PT REFUSED TO EAT LUNCH TRAY - PT STATED HE WANTED TO SLEEP - PT RESTING SUPINE EYES CLOSED RESPIRATIONS REGULAR RATE AND RHYTHM. VVS. CONTINUE POC
--- NOTE | 2016-05-08 14:00 | NUR ---
OFFERED BATH TO PT - PT DECLINED BATH - PT STATED 'I WANT TO SLEEP. I HAVE NOT SLEPT IN 3 DAYS'. CONTINUE PLAN OF CARE.
--- NOTE | 2016-05-08 14:00 | NUR ---
PT ATE ONLY PEACHES FROM LUNCH TRAY. VOICED NO OTHER CONCERNS. CONTINUE POC
--- NOTE | 2016-05-08 14:45 | NUR ---
PT C/O NAUSEA - PT VOMITED A SMALL AMOUNT. - GAVE ZOFRAN - INFORMED DR. ARCHER. PT RESTING COMFORTABLY - RT AT BESIDE FOR TREATMENT (SEE RT FLOW SHEET) PT RESTING WITH EYES CLOSED - RESPIRATIONS REG RATE AND RHYTHM. CONTINUE POC
--- NOTE | 2016-05-08 16:00 | NUR ---
I&O COMPLETE - FED PT - PT ATE 50% TRAY. PT DENIED NAUSEA - PT ASKED TO LOWER THE HOB, HE WANTES TO SLEEP. PT WATCHING TV, RESTING VOICED NO C/O
--- NOTE | 2016-05-08 19:15 | NUR ---
ASSESSMENT COMPLETE, PATIENT IS ALERT AND ORIENTED, S1S2 NOTED, O2 WAS TURNED OFF TODAY AND PATIENT SATS ARE IN HIGH 90'S WITH NO SOB. LUNG SOUNDS CLEAR, BOWEL SOUNDS ACTIVE. FEET ARE BRIDGED WITH PILLOW, FISULA IN LEFT FOREARM HAS DRESSING THAT IS C/D/I, BRUIT AND THRILL PRESENT. RIGHT IJ FLUSHED. ALL SALINE LOCKED AT THIS TIME. PATIENT DENIES NEED, CALL LIGHT IN REACH.
[2016-05-08 20:06] LABS: AFB SPECIMEN PROCESSING Concentration (())
--- NOTE | 2016-05-08 21:15 | NUR ---
MEDS GIVEN, PATIENT REQUEST SOMETHING TO EAT, SANDWHICH GIVEN. DENIES FURTHER NEED.
--- NOTE | 2016-05-08 23:00 | NUR ---
PATIENT RESTING IN BED, DENIES NEED AT THIS TIME. ALERT AND ORIENTED, LUNG SOUNDS CLEAR, S1S2 NOTED WITH A HR OF 60 ON HM. BOWEL SOUNDS ACTIVE X4. HEELS BRIDGED, PATIENT TURNED FOR COMFORT. WILL CONTINUE TO MONITOR.
--- NOTE | 2016-05-09 01:00 | NUR ---
PATIENT RESTING IN BED WITH EYES CLOSED. VSS.
[2016-05-09 03:00] VITALS: BP 126/59
--- NOTE | 2016-05-09 03:00 | NUR ---
REASSESSMENT DONE ON PATIENT. NO ACUTE CHANGES. PATIENT DENIES NEED, REPOSITIONED FOR COMFORT. WILL CONTINUE TO MONITOR.
[2016-05-09 04:43] LABS: BASOPHILS 0 % (0.0-2.0); EOSINOPHILS 0 % (0-7); HEMATOCRIT 31.4 % (42.0-54.0); HEMOGLOBIN 10.7 g/dL (13.5-17.5); IMMATURE GRANULOCYTES 0.4 % (0-5); LYMPHOCYTES 15.4 % (15-50); MCH 29.1 pg (26.0-34.0); MCHC 34.1 g/dL (31.0-37.0); MCV 85.3 fL (80.0-100.0); MEAN PLATELET VOLUME 9.7 fL (7.4-10.4); MONOCYTES 4.8 % (2-11); NEUTROPHILS 79.4 % (40-80); PLATELET COUNT 98 10x3/uL (130-400); RBC 3.68 10x6/uL (4.20-6.10); RDW 14.8 % (11.5-14.5); WBC 4.8 10x3/uL (4.8-10.8)
[2016-05-09 04:49] LABS: ANION GAP 13.3 mmol/L (8-16); CALCIUM 7.1 mg/dL (8.5-10.1); CARBON DIOXIDE 27.4 mmol/L (21.0-32.0); PHOSPHOROUS 5.2 mg/dL (2.5-4.9); POTASSIUM - SERUM 4.7 mmol/L (3.5-5.1)
--- NOTE | 2016-05-09 04:50 | NUR ---
ICE CHIPS GIVEN PER REQUEST. PATIENT REPOSITIONED FOR COMFORT. VSS, WILL MONITOR.
[2016-05-09 05:00] LABS: PLATELET ESTIMATE DECREASED
[2016-05-09 05:59] LABS: INR 0.95 (0.85-1.17); PROTIME 12.6 SECONDS (11.6-15.0)
[2016-05-09 07:00] VITALS: BP 158/63
--- NOTE | 2016-05-09 09:50 | NUR ---
0840- RECEIVED PT VIA BED FROM ICU NURSE CONNOR RN. PT IS ON A FIRST STEP OVERLAY MATTRESS. ON ROOM AIR. LEFT ARM RESERVE FOR AVF, PT DIALYZES ON M, W, AND F. IV SEEN TO RIGHT HAND THAT IS CURRENTLY SALINE LOCKED AND PATENT. RIGHT IJ SEEN THAT IS SALINE LOCKED AND PATENT, PER ICU NURSE CONNOR, IJ IS NURSE ACCESSABLE. FSBS ACHS, THE LAST ONE WAS 119. PT IS A TOTAL ASSIST (QUADRIPLEGIC). SORE SEEN TO LEFT HEEL, FEET BRIDGED ON PILLOW. BILATERAL LOWER EXTREMITIES ARE DRY, SCALY. MULTIPLE SCABS SEEN, (LEFT ARM, BILATERAL LEGS). TURNED PT AND LOOKED AT BUTTOCK AREA, BLANCHABLE REDNESS SEEN WITH WHAT APPEARS TO BE HEALED PRESSURE ULCER,TWO SMALL SKIN TEARS SEEN WITH MEASUREMENTS OF 0.5CM X 0.5CM. PT IS TURNED ON RIGHT SIDE WITH PILLOW UNDER BOTTOM. PER REPORT FROM ICU NURSE CONNOR, PT HAD THORACENTESIS ON 05/07/16 WHICH THEY PULLED 900CC OF FLUID FROM. PT IS REQUESTING THE TV TO BE TURNED ON THE ID CHANNEL AT THIS TIME. WILL CONTINUE TO MONITOR.
[2016-05-09 12:00] VITALS: BP 192/86
--- NOTE | 2016-05-09 13:41 | NUR ---
APPLIED MEPILEX TO PTS COCCYX AREA, DATED AND SIGNED. TURNED PT ON LEFT SIDE.
[2016-05-09 16:00] VITALS: BP 183/84
--- NOTE | 2016-05-09 18:01 | NUR ---
PT LAYING IN BED ON BACK WITH EYES OPEN WATCHING TV. CALL LIGHT IN USE. RESPIRATORY IN ROOM DOING BREATHING TX CURRENTLY. NO NEED AT CURRENT TIME. WILL CONTINUE TO MONITOR.
--- NOTE | 2016-05-09 18:23 | NUR ---
0810- RECEIVED REPORT FROM CONNOR IN ICU. CONNOR STATED SHE WILL DO PTS SHIFT ASSESSMENT. AWAITING PT ARRIVAL.
--- NOTE | 2016-05-09 19:51 | NUR ---
RESUMED CARE OF PT,ASKING TO BE TURN TO R. SIDE, ASKING TO BE FED CAKE,IV-R.HAND, R.IJ, ON AIR MATTRESS, RESERVED L.ARM, MEPLEX DRESSING TO BOTTOM, CALL LIGHT IN REACH, BED IS LOW, SRX2, BED ALARM ON, WILL CONTINUE TO MONITOR
[2016-05-09 20:00] VITALS: BP 164/84
--- NOTE | 2016-05-10 01:33 | NUR ---
PT AWAKE; DENIES ANY DISCOMFORT. REPOSITIONED ON TO R SIDE . MAURI CONTINUE TO MONITOR. SR UP X2, CALL LIGHT WITHIN REACH.
--- NOTE | 2016-05-10 07:24 | NUR ---
RECEIVED PT REPORT. WILL CONTINUE PLAN OF CARE. NO OTHER NEEDS AT THIS TIME. WILL CONTINUE TO MONITOR.
[2016-05-10 08:25] VITALS: BP 169/90
--- NOTE | 2016-05-10 09:27 | NUR ---
CHANGED PT'S CVL DRESSING TODAY, LAST DATE WAS 05/05 PER PROTOCOL BUT WAS FALLING OFF AT THIS TIME. ORANGE SWAB CAPS IN PLACE AT THIS TIME. WILL CONTINUE TO MONITOR.
--- NOTE | 2016-05-10 09:39 | NUR ---
PT IS ALERT. ASSESSMENT DONE PER FLOWSHEET. NO CO PAIN AT THIS TIME. WILL CONTINUE TO MONTIOR.
[2016-05-10 11:37] VITALS: BP 156/88
--- NOTE | 2016-05-10 13:45 | NUR ---
Mr. Leonard had bedside hemodialysis today via his left upper arm av fistula from 1020 until 1320. Average blood flow was 325 mls/minute. Net fluid removed was 4000 mls. Post vital signs were: B/P: 150/94, HR: 62, Resps: 20, Temp: 97.8.
--- NOTE | 2016-05-10 13:56 | NUR ---
NO SS OF DISTRESS AT THIS TIME. WILL CONTINUE TO MONITOR.
--- NOTE | 2016-05-10 14:44 | NUR ---
GRECIA CAKE WAS ORDER PER PT REQUEST, TO BE EATEN AFTER HIS HD WAS COMPLETED. NO OTHER NEEDS AT THIS TIME. WILL CONTINUE TO MONITOR.
[2016-05-10 15:19] LABS: PROINSULIN 39.4 pmol/L (0.0-10.0)
[2016-05-10 15:53] VITALS: BP 154/87
--- NOTE | 2016-05-10 19:45 | NUR ---
PT IS RESTING IN BED WITH EYES OPEN. PT IS A QUAD, AND TOTAL CARE. REQUESTING HELP TO EAT HIS SALAD AT THIS TIME. BURNISHER AND BUMPER REQUESTED TO ASSIST. RIGHT IJ SALINE LOCK, AND RIGHT HAND SALINE LOCK NOTED. LEFT ARM FISTULA NOTED WITH GOOD BRUITT AND THRILL. MEPILEX DRESSING IS INTACT TO BUTTOCKS. SR'S ARE UP X 3 IN BED. CALL LIGHT AND BEDSIDE TABLE ARE WITHIN EASY REACH.
[2016-05-10 20:00] VITALS: BP 157/86
--- NOTE | 2016-05-10 22:32 | NUR ---
PT IS RESTING QUIETLY IN BED WITH EYES OPEN. NO NEEDS VOICED AT THIS TIME. TURNED AND REPOSITIONED Q2 HRS AND PRN.
--- NOTE | 2016-05-10 23:30 | NUR ---
EYES CLOSED, RESP UNLAB ON 1ST STEP MATTRESS FOR C & C. NO S/S OF ACUTE DISTRESS NOTED. HOB UP SR UP X2, C/L IN REACH.
[2016-05-11] VITALS: BP 158/80
--- NOTE | 2016-05-11 01:49 | NUR ---
RESTING IN BED WITH EYES CLOSED. PT TURNED AND REPOSITIONED. NO NEEDS VOICED.
--- NOTE | 2016-05-11 03:36 | NUR ---
PT OFFERED A BATH BY DONAL'S 3 TIMES. HE HAS REFUSED EACH TIME.
[2016-05-11 06:14] LABS: BASOPHILS 0 % (0.0-2.0); EOSINOPHILS 0.4 % (0-7); HEMATOCRIT 30.2 % (42.0-54.0); HEMOGLOBIN 10.1 g/dL (13.5-17.5); IMMATURE GRANULOCYTES 0.4 % (0-5); LYMPHOCYTES 24.5 % (15-50); MCH 28.4 pg (26.0-34.0); MCHC 33.4 g/dL (31.0-37.0); MCV 84.8 fL (80.0-100.0); MEAN PLATELET VOLUME 9.3 fL (7.4-10.4); MONOCYTES 10.5 % (2-11); NEUTROPHILS 64.2 % (40-80); RBC 3.56 10x6/uL (4.20-6.10); RDW 14.3 % (11.5-14.5); WBC 4.6 10x3/uL (4.8-10.8)
[2016-05-11 06:17] LABS: PLATELET COUNT 77 10x3/uL (130-400)
[2016-05-11 06:25] LABS: ANION GAP 12.1 mmol/L (8-16); CARBON DIOXIDE 28.1 mmol/L (21.0-32.0); CREATININE - SERUM 5.4 mg/dL (0.6-1.3); PHOSPHOROUS 4.6 mg/dL (2.5-4.9); POTASSIUM - SERUM 4.2 mmol/L (3.5-5.1)
[2016-05-11 06:26] LABS: CALCIUM 6.9 mg/dL (8.5-10.1)
--- NOTE | 2016-05-11 06:39 | NUR ---
PT IS RESTING IN BED WITH EYES CLOSED. NO DISTRESS NOTED.
--- NOTE | 2016-05-11 07:08 | NUR ---
RECEIVED PT REPORT. NO OTHER NEEDS AT THIS TIME. WILL CONTINUE PLAN OF CARE.
[2016-05-11 07:46] VITALS: BP 178/91
--- NOTE | 2016-05-11 09:16 | NUR ---
PT IS ALERT. ASSESSMENT DONE PER FLOWSHEET. NO CO PAIN AT THIS ITME. WILL CONTINUE TO MONITOR.
[2016-05-11 11:36] VITALS: BP 175/89
[2016-05-11 15:18] VITALS: BP 164/90
[2016-05-11 18:09] LABS: BETA-HYDROXYBUTYRIC ACID <0.2 mg/dL (())
--- NOTE | 2016-05-11 19:38 | NUR ---
ASSESSMENT COMPLETE, A&O, RIGHT IJ SL, DRSG C/D/I. RESPERAITONS EVEN AND UNLABORED. REPOSITIONED IN BED FOR COMFORT, BED LOW, CL IN REACH. CUP OF FRESH ICE GIVEN AT PT REQUEST.
[2016-05-11 20:02] VITALS: BP 184/97
--- NOTE | 2016-05-11 21:23 | NUR ---
HS MEDS GIVEN, BS 192, NO COVERGE GIVEN AT THIS TIME, PT STATES THAT HIS BS DROPS IN THE NIGHT. WASHED PTS FACE AT HIS REQUEST, PT DENIES OTHER NEEDS, BED LOW, CL IN REACH.
[2016-05-12 01:39] VITALS: BP 171/91
--- NOTE | 2016-05-12 03:25 | NUR ---
RESTING WITH EYES CLOSED, RESPERATIONS EVEN, NO S/S DISTRESS NOTED.
--- NOTE | 2016-05-12 04:10 | NUR ---
PT LAYING IN BED NO DISTRESS OBSERVED WILL MONITOR
[2016-05-12 04:37] VITALS: BP 173/91
[2016-05-12 06:11] LABS: BASOPHILS 0 % (0.0-2.0); EOSINOPHILS 0.2 % (0-7); HEMATOCRIT 29.5 % (42.0-54.0); IMMATURE GRANULOCYTES 0.4 % (0-5); MCH 28.4 pg (26.0-34.0); MCHC 33.9 g/dL (31.0-37.0); MCV 83.8 fL (80.0-100.0); MEAN PLATELET VOLUME 9.6 fL (7.4-10.4); MONOCYTES 8.8 % (2-11); NEUTROPHILS 66.6 % (40-80); PLATELET COUNT 76 10x3/uL (130-400); RBC 3.52 10x6/uL (4.20-6.10); RDW 14.2 % (11.5-14.5); WBC 4.5 10x3/uL (4.8-10.8)
[2016-05-12 06:30] LABS: ANION GAP 14.3 mmol/L (8-16); CARBON DIOXIDE 26.4 mmol/L (21.0-32.0); CREATININE - SERUM 6.5 mg/dL (0.6-1.3); POTASSIUM - SERUM 4.7 mmol/L (3.5-5.1)
[2016-05-12 06:38] LABS: CALCIUM 6.9 mg/dL (8.5-10.1)
[2016-05-12 08:00] VITALS: BP 150/41
--- NOTE | 2016-05-12 09:56 | NUR ---
PT IS ALERT. ASSESSMENT DONE PER FLOWSHEET. NO CO PAIN AT THIS TIME. WILL CONTINUE TO MONTIOR.
[2016-05-12 12:09] VITALS: BP 157/43
--- NOTE | 2016-05-12 13:19 | NUR ---
Nutrition follow-up: Diet: Renal ADA consistent CHO PO intake ~75-100% of meals Labs reviewed +BM PO intake is good at this time. RDN following.
--- NOTE | 2016-05-12 15:03 | NUR ---
Patient Name: JOSÉ ASHBY Encounter No: [id number] : 1970 Primary Insurance: MEDICARE A & B Anticipated DC Date: Planned Disposition: Home with Home Health External Planned Provider: EMY STERLING DCP follow-up note: CM RECEIVED TELEPHONE MESSAGE FROM PT'S NURSE FROM FAMILY REQUESTING CM ARRANGE PT'S TRANSPORT HOME AT DISCHARGE TOMORROW WITH [facility]. CM CALLED JESSICA ASHBY, , WHO PROVIDED MEDICAID TRANSPORT NUMBER FOR [facility], AND REQUESTED THAT CM ARRANGE TRANSPORT TO STERILIZATION TECHNICIAN PT'S WHEELCHAIR AT HOME AND THEN TRANSPORT PT HOME; JESSICA WILL BE HOME TO GIVE THE WHEELCHAIR TO THE CORRECTIONAL SUPERVISING COOK. CM CALLED [facility], , SPOKE TO JAZMINE WHO ARRANGED TO HAVE PT'S WHEELCHAIR PICKED UP AT THE PT'S HOME AND VAN WILL STERILIZATION TECHNICIAN PT AFTER 1300 TOMORROW. JAZMINE ADVISED THAT FAMILY WILL NEED TO BE HOME AND BRING THE CHAIR TO THE VAN. CM PROVIDED JESSICA'S CONTACT NUMBER. CM NOTIFIED JESSICA. DISCHARGE ADDRESS CONFIRMED, [address] [place] [address], [place], [place]. CM DISCUSSED DISCHARGE WITH PT, PT IN AGREEMENT WITH DISCHARGE HOME TOMORROW. IMPORTANT MESSAGE FROM MEDICARE PROVIDED AND EXPLAINED. BEDSIDE NURSE NOTIFIED. CM CALLED AND NOTIED D[facility] AT [phone], FAXED UPDATED INFORMATION TO [facility] AT [phone]. TO RESUME HOME HEALTH AT DISCHARGE, NOTIFY [facility] AT [phone], FAX DISCHARGE INFORMATION TO [facility] AT [phone]. CM TO FOLLOW AND ASSIST NEEDED. [facility] MEDICAID TRANSPORT, , WILL BRING PT'S WHEELCHAIR AND STERILIZATION TECHNICIAN PT AT OR AFTER 1500 HOURS ON 05-13-16, CONFIRMATION # [id number]. Donnie Jarvis, CASE MANAGEMENT
[2016-05-12 17:46] VITALS: BP 175/95
--- NOTE | 2016-05-12 18:02 | NUR ---
Mr. Leonard had bedside hemodialysis today via his left upper arm av fistula from 1446 until 1746. Average blood flow was 350 mls/minute. Net fluid removed was 3500 mls. Post vital signs were: B/P:152/94, HR:64, Temp:97.7, Resps:18.
--- NOTE | 2016-05-12 19:30 | NUR ---
FINISHING UP WITH DIAYLSIS. VOICES NO C/O PAIN OR DISCOMFORT AT THIS TIME. HOB UP SR UP X2, C/L IN REACH. IS A QUAD, TURN AND REPOSITION Q 2 HOURS FOR C & C. ON FIRST STEP MATTRESS. LEFT ARM FISTULA WITH + BRUIT AND THRILL NOTED. RT IJTL INTACT WITH DRSG CDI. RT HAND SL INTACT WITH NO R/S NOTED AT SITE. HOB UP SR UP X2, C/L IN REACH. CONTINUE TO MONITOR.
[2016-05-12 19:56] VITALS: BP 188/103
--- NOTE | 2016-05-13 | NUR ---
TURN AND REPOSITION FOR C & C, HIMA WELL. C/L IN REACH. DENIES NEEDS. CONTINUE TO MONITOR.
[2016-05-13 01:31] VITALS: BP 207/111
[2016-05-13 04:40] VITALS: BP 203/103
[2016-05-13 07:00] LABS: ANION GAP 9.8 mmol/L (8-16); CALCIUM 7.3 mg/dL (8.5-10.1); CARBON DIOXIDE 31.6 mmol/L (21.0-32.0); CREATININE - SERUM 5.1 mg/dL (0.6-1.3); PHOSPHOROUS 5.2 mg/dL (2.5-4.9); POTASSIUM - SERUM 4.4 mmol/L (3.5-5.1)
[2016-05-13 07:03] LABS: BASOPHILS 0 % (0.0-2.0); EOSINOPHILS 0.2 % (0-7); HEMATOCRIT 28.7 % (42.0-54.0); HEMOGLOBIN 9.7 g/dL (13.5-17.5); IMMATURE GRANULOCYTES 0.4 % (0-5); LYMPHOCYTES 20.8 % (15-50); MCH 28.5 pg (26.0-34.0); MCHC 33.8 g/dL (31.0-37.0); MCV 84.4 fL (80.0-100.0); MEAN PLATELET VOLUME 10.5 fL (7.4-10.4); MONOCYTES 12.3 % (2-11); NEUTROPHILS 66.3 % (40-80); PLATELET COUNT 84 10x3/uL (130-400); RDW 14.4 % (11.5-14.5); WBC 4.7 10x3/uL (4.8-10.8)
--- NOTE | 2016-05-13 07:37 | NUR ---
AM ROUNDING DONE WITH PATIENT APPEARING TO BE SLEEPING, RESP ARE EVEN AND NON LABORED. PATIENT IS A QUAD AND USING THE BLOW CALL LIGHT SYSTEM. RIGHT IJ SEEN WITH SALINE LCOK, RIGHT HAND SEEN WITH SALINE LOCK. RESERVE LEFT ARM WITH AVF, + BRUIT AND THRILL. WILL CONTINUE TO MONITOR. 0735-B/P IS UP 200/100. WILL GIVE AM BLOOD PRESSURE MEDS EARLY.
[2016-05-13 08:22] VITALS: BP 200/100
--- NOTE | 2016-05-13 09:24 | NUR ---
Patient Name: JOSÉ ASHBY Encounter No: [id number] : 1970 Primary Insurance: MEDICARE A & B Anticipated DC Date: 05-13-2016 Planned Disposition: Home with Home Health External Planned Provider: EMY STERLING OFFICE DCP follow-up note: ANAHY SPOKE TO NURSE WHO REPORTED THAT [facility] [address] CALLED LAST EVENING AND CANCELLED REPORTING FAMILY REFUSED TO RIDE WITH PT'S WHEELCHAIR TO TETRYL SCREEN OPERATOR PT, WHICH WAS REQUIRED BY [facility] [address], SO THEY ARE NOT ABLE TO PROVIDE TRANSPORT FOR DISCHARGE HOME. ANAHY RECEIVED CALL FROM FAITH, PT'S BROTHER WHO REPORTED HIS IS NOT ABLE TO RIDE IN THE VAN TO [employer] AND HE IS AT WORK; FAITH REPORTS NO WAY TO TETRYL SCREEN OPERATOR PT. ANAHY EXPLAINED THAT THE DOCTOR ADDRESSED THIS ISSUE TODAY AND PT WILL TRANSPORT VIA AMBULANCE TO GET HOME. FATIH REPORTS HIS WILL BE HOME ALL DAY TO RECEIVE PT WHEN HE ARRIVES AT HOME. TO RESUME HOME HEALTH AT DISCHARGE, NOTIFY [facility] AT [phone], FAX DISCHARGE INFORMATION TO [facility] AT [phone]. ANAHY TO FOLLOW AND ASSIST NEEDED. Donnie Jarvis, CASE MANAGEMENT
[2016-05-13 10:58] VITALS: BP 163/83
[2016-05-13] MEDS ORDERED: NORVASC10 MG PO (11:33)
[2016-05-13] MEDS ORDERED: IPRAT-ALBUT 0.5-3 ML UPD (11:39)
[2016-05-13] MEDS ORDERED: COREG12.5 MG PO (11:40)
[2016-05-13] MEDS ORDERED: PROVENTIL/2.5 MG/3 M INH (11:40)
[2016-05-13] MEDS ORDERED: AVAPRO150 MG PO (11:40)
[2016-05-13] MEDS ORDERED: PHOSLO667 MG PO (11:40)
[2016-05-13] MEDS ORDERED: BENZONATATE200 MG PO (11:41)
[2016-05-13] MEDS ORDERED: MUCINEX DM ER1 EAC1 PO (11:41)
[2016-05-13] MEDS ORDERED: ZOFRAN ODT4 MG/UDTAB PO (11:42)
[2016-05-13] MEDS ORDERED: FLORAJEN3 CAPS460 MG PO (11:42)
[2016-05-13] MEDS ORDERED: CYCLOBENZAPRINE10 MG PO (11:43)
[2016-05-13] MEDS ORDERED: OMEPRAZOLE20 M1 PO (11:57)
--- NOTE | 2016-05-13 13:00 | NUR ---
1254-RIGHT IJ REMOVED WITH CATH TIP INTACT. PATIENT IS BLEEDING FROM THIS SITE. PRESSURE HELD X 5 MINUTES. RE-DRESSED WITH CLEAN 2 X 2 AND OPSITE. TO LAY FLAT X 15 MIN. WILL CONTINUE TO MONITOR.
--- NOTE | 2016-05-13 13:03 | NUR ---
Patient Name: JOSÉ ASHBY Encounter No: [id number] : 1970 Primary Insurance: MEDICARE A & B Anticipated DC Date: 05-13-2016 Planned Disposition: Home with Home Health External Planned Provider: [facility] DCP follow-up note: ANAHY CALLED [facility] AT [phone], NOTIFIED CHARLES OF PT'S DISCHARGE HOME FOR RESUMPTION OF HOME HEALTH CARE. CM FAXED DISCHARGE INFORMATION TO [facility] AT [phone]. PT TO TRANSPORT HOME VIA AMBULANCE, PT'S SISTER IN LAW IS AT HOME TO RECEIVE PT TODAY. Donnie Jarvis, CASE MANAGEMENT
--- NOTE | 2016-05-13 13:50 | NUR ---
CALLED AYAAN WITH [employer]. SHE STATES THAT IT MIGHT BE CLOSE TO 30-45 MIN. BEFORE PICKUP. WILL REMOVE SALINE LOCK AT THAT TIME.
--- NOTE | 2016-05-13 14:12 | NUR ---
CHECKED PATIENT AND HE IS CLEAN FOR TRANSPORT. NEW GOWN PLACED ON HIM. SALINE LOCK STILL IN USE, AWAITING AMBULANCE.
--- NOTE | 2016-05-13 14:40 | NUR ---
1440-SALINE LOCK REMOVED WITH CATH TIP INTACT. [facility] HERE FOR TRANSPORT. DISCHARGED HOME VIA STRETCHER.
--- NOTE | 2016-05-14 07:09 | DS ---
PATIENT:JOSÉ LEONARD :[birth year] MEDICAL RECORD: [id number] DISCHARGE SUMMARY ADMISSION DATE: 05/03/16 DISCHARGE DATE: 05/13/16 HISTORY OF PRESENT ILLNESS: Mr. Leonard is a 45-year-old white male with end-stage renal disease and chronic dialysis. He has chronic quadriplegia post a traumatic spinal injury last year, has currently been at home with his brother, developed fever and cough, and admitted for the above. HOSPITAL COURSE: The patient did have bilateral pneumonia, was admitted to the intensive care unit, and was followed by pulmonary throughout his hospitalization. He was treated with vigorous antibiotics, thoracentesis, and steroid therapy. He had no major organisms grow from any of his cultures. He did surprisingly well and was able to be moved to the floor. At the time of discharge, he was persistently thrombocytopenic. This had been present throughout his hospitalization as I went ahead and changed some of his medications and we will follow that as an outpatient. He was also hypertensive and I went up all his antihypertensive meds, he was otherwise back to baseline at the time of discharge. DISCHARGE DIAGNOSES: 1. Pneumonia, community acquired, organism unknown. Responds with antibiotic therapy. 2. End-stage renal disease, chronic dialysis. 3. Quadriplegia. 4. Thrombocytopenia. 5. Chronic anemia. 6. Hypertension. PLAN: The patient will be discharged today. I will see him ____ next week. We will monitor his platelet count as an outpatient. He will continue home health and home PT that he had and his diet renal will be applied by his family. DISCHARGE MEDICATIONS: Will be PhosLo 2 t.i.d. He will be on Tessalon Perles p.r.n. He will be on Coreg 12.5 b.i.d. He will resume his outpatient Epogen. He will be on p.r.n. glucagon. He will be on Reglan 10 twice a day a.c. He will be on his p.r.n. drugs, Celexa 10 mg at bedtime, amlodipine 10 mg b.i.d. and I will continue Plavix 75 mg daily along with irbesartan 150 mg daily. TRANSINT:[id number] Voice Confirmation ID: [id number] DOCUMENT ID: [id number] LORENZO MOLINA MD at 0709 CC: [id number] DICTATION DATE: 05/13/16 0747 EXHAUST AND MUFFLER FITTER: 05/13/161931 DIS IN 05/13/16 [facility] [address] [place] [place] [address]
[2016-06-30 12:17] LABS: ACID FAST CULTURE Negative (()); ACID FAST SMEAR Negative (())
== END 2016-05-13 14:46 | disposition home health service (06) | DRG 190 ==
LOC: D.M2 23:40 → D.ICU 23:40 → D.M2 05-04 16:46 → D.ICU 05-04 17:19 → D.M2 05-09 08:14
PROVIDERS: Internal Medicine Nephrology; Internal Medicine Pulmonary Disease; Specialist; ADMIT Internal Medicine Nephrology
PROC: 5A1D60Z (ICD-10-PCS; principal; 2016-05-05)
PROC: 05HM33Z Insertion of Infusion Device into Right Internal Jugular Vein, Percutaneous Approach (ICD-10-PCS; 2016-05-05)
PROC: B543ZZA Ultrasonography of Right Jugular Veins, Guidance (ICD-10-PCS; 2016-05-05)
PROC: 0W993ZZ Drainage of Right Pleural Cavity, Percutaneous Approach (ICD-10-PCS; 2016-05-07)
DX: J44.0 Chronic obstructive pulmonary disease with (acute) lower respiratory infection (principal); J18.9 Pneumonia, unspecified organism; G82.50 Quadriplegia, unspecified; J96.01 Acute respiratory failure with hypoxia; N18.6 End stage renal disease; J45.901 Unspecified asthma with (acute) exacerbation; J90 Pleural effusion, not elsewhere classified; I12.0 Hypertensive chronic kidney disease with stage 5 chronic kidney disease or end stage renal disease; J44.1 Chronic obstructive pulmonary disease with (acute) exacerbation; Z99.2 Dependence on renal dialysis; E16.2 Hypoglycemia, unspecified; D69.6 Thrombocytopenia, unspecified; D64.9 Anemia, unspecified; E87.5 Hyperkalemia; F17.200 Nicotine dependence, unspecified, uncomplicated

== ENCOUNTER 2017-07-12 08:38 | Outpatient (CLI) | payer MEDICARE ==
[~2017-07-12] VITALS: Ht 182.9 cm; Wt 82.6 kg
--- NOTE | ~2017-07-12 | HEMODYNAMI ---
PATIENT:JOSÉ ASHBY MEDICAL RECORD: [id number] : 72 LOCATION:TIMO ADMISSION DATE: 07/12/17 Generatedon:07/12/201714:55 Patient name: JOSÉ ASHBY Patient #: [id number] SSN: DO B: 1970 Date of study: 07/12/2017 Page: Of Hemodynamic Procedure Report Patient Data Patient Demographics Procedure consent was obtained First Name: JOSÉ Gender: Male Last Name: ISMA : 1970 Patient #: [id number] Age: 47 year(s) Race: Unknown Additional ID: [id number] Contact details Address: [address] [address] State: [place] City: [place] Zip code: [address] Admission Admission Data Admission Date: 07/12/2017 Admission Time: 8:38 Procedure Procedure Types Cath Procedure Peripheral Cath Diagnostic Procedure Abd/Extremity Extremities Right Lower Ext Arterio Procedure Description Procedure Date Procedure Date: 07/12/2017 Procedure Start Time: 12:39 Procedure Staff Name Function Scotty Diaz MD Performing Physician Gagandeep Sheriff RT Monitor Kareen Negron RN Nurse Yeni Minaya RT Scrub Kori Waddell RN Nurse Procedure Data Cath Procedure Fluoroscopy Diagnostic fluoroscopy Total fluoroscopy Time: time: 18.1 min 18.1 min Diagnostic fluoroscopy Total fluoroscopy dose: 264 dose: 264 mGy mGy Contrast Material Contrast Material Type Amount (ml) Isovue 300 125 Entry Location Entry Primary Successful Side Size Upsize Upsize Entry Closure Mejia ccessful Closure Location (Fr) 1 (Fr) 2 (Fr) Remarks Device Remarks Femoral Left 5 Fr artery Femoral Left 6 Fr Manual artery Short Compression Procedure Medications Medication Administration Route Dosage Heparin Flush Bag added to field 3 bags (1000units/500ml NS) Lidocaine 1% added to field 20 Versed I.V. 0.5 mg Fentanyl I.V. 25 mcg Oxygen NC 3 l/min Fentanyl I.V. 25 mcg Versed I.V. 0.5 mg Heparin Bolus I.V. 5000 units Versed I.V. 1 mg Fentanyl I.V. 50 mcg Heparin Bolus I.V. 2000 units Hemodynamics Rest Heart Rate: 56 (bpm) Snapshots Pre Cath Intra NCS Post Cath Vital Signs Time Heart Resp SPO2 etCO2 NIBP (mmHg) Rhythm Pain Status Sedation Rate (ipm) (%) (mmHg) Level (bpm) 12:05:57 57 42 98 36.6 142/80(120) NSR 0 (11) , No 10(A) pain 12:10:19 56 22 100 39.6 139/77(103) NSR 0 (11) , No 10(A) pain 12:14:39 55 19 100 39.6 137/74(114) NSR 0 (11) , No 10(A) pain 12:19:34 55 52 100 38.9 141/79(123) NSR 0 (11) , No 10(A) pain 12:23:58 54 39 100 38.9 146/74(126) NSR 0 (11) , No 10(A) pain 12:28:24 53 19 100 41.9 144/73(129) NSR 0 (11) , No 10(A) pain 12:32:43 55 17 100 35.9 120/65(98) NSR 0 (11) , No 10(A) pain 12:36:57 54 16 100 38.9 136/78(124) NSR 0 (11) , No 10(A) pain 12:41:17 54 17 100 38.1 137/73(126) NSR 1 (11) , Very 8(A) mild 12:45:39 54 45 100 34.4 140/74(109) NSR 0 (11) , No 8(A) pain 12:50:38 52 14 100 43.3 Measuring NSR 0 (11) , No 8(A) pain 12:50:42 52 14 100 38.1 121/68(91) NSR 0 (11) , No 8(A) pain 12:54:56 52 14 100 44.1 130/72(98) NSR 0 (11) , No 8(A) pain 12:59:16 53 25 100 41.1 136/72(102) NSR 0 (11) , No 8(A) pain 13:04:11 54 14 100 41.1 130/76(103) NSR 0 (11) , No 8(A) pain 13:09:10 55 15 100 40.4 114/62(92) NSR 2 (11) , 8(A) Uncomfortable 13:13:26 54 13 100 38.1 111/64(82) NSR 0 (11) , No 8(A) pain 13:17:42 53 13 100 40.3 113/62(87) NSR 0 (11) , No 8(A) pain 13:21:56 53 13 100 41.1 109/63(83) NSR 0 (11) , No 8(A) pain 13:26:08 54 15 100 41.1 113/65(87) NSR 0 (11) , No 8(A) pain 13:30:24 54 13 100 40.3 114/59(89) NSR 0 (11) , No 8(A) pain 13:34:38 54 14 100 36.6 117/63(89) NSR 0 (11) , No 8(A) pain 13:38:52 53 13 100 39.6 128/69(94) NSR 0 (11) , No 8(A) pain 13:43:12 53 14 100 39.6 116/66(87) NSR 0 (11) , No 8(A) pain 13:47:26 54 17 100 38.9 128/73(102) NSR 0 (11) , No 8(A) pain 13:51:44 53 15 100 39.6 132/73(106) NSR 0 (11) , No 8(A) pain 13:56:04 54 17 100 38.8 134/72(113) NSR 0 (11) , No 8(A) pain 14:00:25 53 17 100 39.6 142/72(105) NSR 0 (11) , No 8(A) pain 14:04:45 53 17 100 38.8 138/74(112) NSR 0 (11) , No 8(A) pain 14:09:07 52 16 100 39.6 148/76(111) NSR 0 (11) , No 8(A) pain 14:13:33 54 20 100 39.6 138/73(118) NSR 0 (11) , No 8(A) pain 14:17:55 54 30 100 39.6 140/74(116) NSR 0 (11) , No 8(A) pain 14:22:17 54 31 100 39.6 155/76(132) NSR 0 (11) , No 8(A) pain 14:26:42 53 42 100 40.3 146/81(127) NSR 0 (11) , No 8(A) pain 14:31:04 54 34 100 35.8 153/84(128) NSR 0 (11) , No 8(A) pain 14:35:28 54 26 100 38.1 156/82(106) NSR 0 (11) , No 8(A) pain 14:39:50 56 17 100 27.6 114/73(96) NSR 0 (11) , No 8(A) pain 14:44:02 56 20 100 40.3 121/69(94) NSR 0 (11) , No 8(A) pain 14:48:16 54 17 100 40.3 127/76(116) NSR 0 (11) , No 8(A) pain 14:52:34 53 19 39.6 137/77(119) NSR 0 (11) , No 8(A) pain Medications Time Medication Route Dose Verified Delivered Reason Notes Effec tiveness by by 12:40:08 Heparin Flush added 3 Scotty Fajardo used for Bag to bags Joe Diaz MD procedure (1000units/500ml field MEADE NS) 12:40:24 Lidocaine 1% added 20ml Scotty Fajardo used for to vial Joe Diaz MD procedure field MEADE 12:40:37 Versed I.V. 0.5 Scotty Mathur for mg Jamil Diaz RN sedation 12:40:47 Fentanyl I.V. 25 Scotty Mathur for mcg Jamil Diaz RN sedation 12:41:03 Oxygen NC 3 Scotty Mathur used for l/min Jamil Diaz RN procedure 12:44:29 Fentanyl I.V. 25 Scotty Mathur for mcg Jamil Diaz RN sedation 12:44:40 Versed I.V. 0.5 Scotty Jeongody for mg Jamil Diaz RN sedation 13:05:51 Heparin Bolus I.V. 5000 Scotty Mathur units Jamil Diaz RN, MD 13:09:49 Versed I.V. 1 mg Scotty Mathur for Derrick devries Jamil Diaz RN sedation sleeping @ 13:43:24 13:09:59 Fentanyl I.V. 50 Scotty Mathur for Derrick camejo Jamil Diaz RN sedation sleeping @ 13:43:21 14:01:10 Heparin Bolus I.V. 1999 Scotty Sheikh radha Bairon Diaz RN, MD Procedure Log Time Note 12:04:06 Time tracking: Regular hours (M-F 7:00 - 5:00) 12:04:11 Plan of Care:Hemodynamics will remain stable., Cardiac rhythm will remain stable., Comfort level will be maintained., Respiratory function will remain adequate., Patient/ family verbilizes understanding of procedure., Procedure tolerated without complication., Recovers from procedure without complications.. 12:04:25 Patient received from Outpatients to IR Alert and oriented. Tansferred to table in Supine position. 12:04:26 Correct patient and procedure confirmed by team. 12:04:27 Correct patient and procedure confirmed by team. 12:04:29 Signed procedure consent form obtained from patient. 12:04:30 ECG and BP/O2 sat monitors applied to patient. 12:04:31 Full Disclosure recording started 12:04:33 - 12:04:34 Vital chart was started 12:04:35 Baseline sample Acquired. 12:04:44 H&P Date Dictated: 07/12/2017 H&P Addendum completed by physician on day of procedure. (MUST COMPLETE FOR ALL OUTPATIENTS). 12:04:45 Pre-procedure instructions explained to patient. 12:04:46 Pre-op teaching completed and patient verbalized understanding. 12:04:50 Family in waiting room. 12:04:54 Is the patient allergic to Iodine/contrast media? No. 12:04:57 Is patient on blood thinner?No 12:05:12 Use device set IR Diagnostic 12:05:14 Tegaderm 4 x 4 (1626W) opened to sterile field. 12:05:15 Sterile Angiographic Pack opened to sterile field. 12:05:15 Bag Decanter (2001S) opened to sterile field. 12:05:16 ACIST Manifold (86732) opened to sterile field. 12:05:17 ACIST Hand Control (72558) opened to sterile field. 12:05:19 ACIST Syringe (25492) opened to sterile field. 12:05:52 Patient diabetic? Yes. 12:06:43 ACC The patient was administered the following blood thiners within the last 24 hours: ACCAspirin 12:06:46 If diabetic: On Metformin? No 12:06:47 - 12:06:48 ----Pre-sedation anethsthesia assessment.---- 12:06:52 Previous problem with sedation/anesthesia? No ? 12:09:33 Snore? No 12:09:35 Sleep apnea? No 12:09:37 Deviated septum? No 12:09:38 Opens mouth fully? Yes 12:09:40 Sticks out tongue? Yes 12:09:44 Airway obstruction? No ? 12:09:46 Dentures? No ? 12:09:57 Pre procedure: right dorsailis pedis pulse Doppler 12:10:01 Pre procedure: left dorsailis pedis pulse Inaccessible 12:10:05 Pre procedure: right posterior tibial pulse Doppler 12:10:08 Pre procedure: left posterior tibial pulse Doppler 12:10:18 Patient pain scale 0/10 no pain. 12:10:24 IV patent on arrival in right hand with 0.9% NaCl at [facility]. 12:10:25 Sharps counted by scrub and verified by MaxwellNClint 12:10:26 Alarms reviewed by RClint N. 12:10:40 Left groin area was prepped with chlora-prep and draped in sterile fashion 12:37:17 Physician arrived 12:37:18 --------ALL STOP TIME OUT------ 12:37:18 Final Timeout: patient, procedure, and site verified with staff and physician. All members of the team are in agreement. 12:37:23 Left groin site verified by team. 12:37:28 Sedation plan: IV Moderate Sedation Medication:Versed, Fentanyl 12:39:12 Procedure started. 12:39:20 Local anesthetic to left femerol artery with Lidocaine 1% by Scotty Diaz MD.INITIAL ACCESS ONLY 12:39:42 A 5 Fr sheath was inserted into the Left Femoral artery 12:40:08 Heparin Flush Bag (1000units/500ml NS) 3 bags added to field was administered by Scotty Diaz MD; used for procedure; 12:40:24 Lidocaine 1% 20ml vial added to field was administered by Scotty Diaz MD; used for procedure; 12:40:37 Versed 0.5 mg I.V. was administered by Kareen Negron RN; for sedation; 12:40:47 Fentanyl 25 mcg I.V. was administered by Kareen Negron RN; for sedation ; 12:40:51 DOC .035 wire (R42681) opened to sterile field. 12:40:52 TUBING Contrast Injection High Pressure (TZD963M) opened to sterile field. 12:40:53 Micropuncture VSI 4FR kit opened to sterile field. 12:40:54 TUBING Contrast Injection High Pressure (SMT870F) opened to sterile field. 12:41:03 Oxygen 3 l/min NC was administered by Kareen Negron RN; used for procedure; 12:44:04 GLIDE CATHETER 5FR ANGLED 65cm (CG507) opened to sterile field. 12:44:29 Fentanyl 25 mcg I.V. was administered by Kareen Negron RN; for sedation ; 12:44:40 Versed 0.5 mg I.V. was administered by Kareen Negron RN; for sedation; 12:45:45 SHEATH 6FR Hunter (BYL338) opened to sterile field. 12:46:00 A 6 Fr Short sheath was inserted into the Left Femoral artery 12:47:35 GLIDE WIRE ANGLE 180cm (LB3518) opened to sterile field. 12:47:36 CXI Catheter 90cm (H73377) opened to sterile field. 12:55:24 TORQUE DEVICE PLASTIC .038 ( TD01) opened to sterile field. 13:00:02 CHOICE PT Extra Support J 300cm guide wire ([id number]) opened to steril e field. 13:04:57 SPIDER EMBOLIC PROTECTION DEVICE 3MM ([id number]) opened to sterile field. 13:05:06 [place] 1 Small Atherectomy catheter (H1S) opened to sterile field. 13:05:51 Heparin Bolus 5000 units I.V. was administered by Kareen Negron RN; ; 13::49 Versed 1 mg I.V. was administered by Kareen Negron RN; for sedation; 13::59 Fentanyl 50 mcg I.V. was administered by Kareen Negron RN; for sedation ; 13:30:05 Inflate balloon Inflation number: 3 A IN.PACT Admiral 4 x 40 x 130 DCB Balloon ([id number]) was prepped and advanced across the Undefined1, then unable to cross lesion 13:36:24 Inflate balloon Inflation number: 1 A CHOCOLATE 3.0 x 40 x 150 balloon ([id number]) was prepped and advanced across the Undefined1, then inflated to 13:38:47 Timer 2 started at 1:36 PM, stopped at 1:38 PM, duration 00:02:02 sec. 13:38:53 Timer 1 started at 1:36 PM, stopped at 1:38 PM, duration 00:02:12 sec. 13:39:01 Timer 1 started at 1:39 PM, stopped at 1:39 PM, duration 00:00:00 sec. 13:43:21 Effectiveness of Fentanyl delivered @ ::59 is: Mostly sleeping 13:43:24 Effectiveness of Versed delivered @ 13:09:49 is: Mostly sleeping 14:01:10 Heparin Bolus 2000 units I.V. was administered by Kori Waddell RN; ; 14:09:07 Inflate balloon Inflation number: 2 A SABER 2.0 x 150 x150 balloon ([id number]) was prepped and advanced across the Undefined1, then inflated 14:14:17 ROADNN .035 145 glide wire (H65760) opened to sterile field. 14:34:50 Timer 2 started at 2:34 PM, stopped at 2:34 PM, duration 00:00:02 sec. 14:35:16 Sheath removed intact; hemostasis achieved with Manual Compression to the Left Femoral artery. 14:35:19 Procedure ended.(Physican Out) 14:51:37 Tegaderm 6 x 8 (9468) opened to sterile field. 14:51:46 Fluoroscopy time 18.10 minutes. 14:51:52 Fluoroscopy dose: 264 mGy 14:51:52 Flurop Dose total: 264 14:52:00 Contrast amount:Isovue 300 125ml. 14:52:01 Sharps counted by scrub and verified by R.N. 14:52:04 Insertion/operative site no bleeding no hematoma. 14:52:13 Post-op/insertion site Left Femoral artery dressed using a 4 x 4 and Tegaderm. X 2 14:52:37 Post left femerol artery:stable 14:52:43 Post procedure: right dorsailis pedis pulse Doppler. 14:52:49 Post procedure: left dorsailis pedis pulse 1+ Palpable, but thready & weak; easily obliterated. 14:52:57 Post procedure: right posterior tibial pulse Doppler. 14:53:01 Post procedure: left posterior tibial pulse Inaccessible. 14:53:03 Post procedure instruction explained to patient.Patient verbalizes understanding. 14:53:04 Procedure and supply charges have been captured, reviewed, submitted an d are correct. 14:55:06 Report given to Outpatients. 14:55:08 Patient transfered to Outpatients with Bed. 14:55:44 Vital chart was stopped Intervention Summary Intervention Notes Time ActionType Lesion and Equipment Used Action# Pressure Duration Attributes 13:30:05 Inflate Undefined1 IN.PACT Admiral 4 3 0 00:00 balloon x 40 x 130 DCB Balloon ([id number]) 13:36:24 Inflate Undefined1 CHOCOLATE 3.0 x 1 0 00:00 balloon 40 x 150 balloon ([id number]) 14:09:07 Inflate Undefined1 SABER 2.0 x 150 2 0 00:00 balloon x150 balloon ([id number]) Device Usage Item Name Manufacture Quantity Catalog Number Hospital Part Curr ent Minimal Lot# / Charge Number Stock Stock Serial# Code Tegaderm 4 x 4 3M 1 1626W [id number] 208461 3957 17 5 (1626W) Sterile Cardinal 1 [id number] 001375 6261 99 5 Angiographic Pack Health Bag Decanter Microtek 1 2002S 9468647 89666 9904 98 5 (2001S) Medical Inc. ACIST Manifold Acist 1 43831 764288 306258 4680 63 5 (80178) Medical Systems Inc ACIST Hand Acist 1 99620 494098 188186 2464 46 5 Control (99612) Medical Systems Inc ACIST Syringe Acist 1 98684 203202 438327 6833 23 20 (69660) Medical Systems Inc DOC .035 wire Cook Medical 1 W76718 756704 3133 49 5 7638869 (J73198) TUBING Contrast Merit 2 [id number] 077254 995787 3736 16 5 Injection High Medical Pressure (TEB211E) Micropuncture VSI VSI VASCULAR 1 7266V 171289 4279 19 5 4FR kit SOLUTIONS GLIDE CATHETER Terumo 1 CG507 853372 7224 41 5 5FR ANGLED 65cm (CG507) SHEATH 6FR Terumo 1 VCZ132 864283 651193 1471 96 40 Hunter (VXI097) GLIDE WIRE ANGLE Terumo 1 LP6453 237622 069946 6729 46 5 180cm (UG4400) CXI Catheter 90cm Cook AccurIC 1 O58302 587136 514006 0479 54 5 9649467 (S19328) TORQUE DEVICE Oketo 1 TD01 253239 984082 9724 21 5 PLASTIC .038 ( Scientific TD01) CHOICE PT Extra Oketo 1 [id number] 051567 615789 1794 05 5 Support J 300cm Scientific guide wire ([id number]) SPIDER EMBOLIC Medtronic 1 [id number] 621106 8941 91 5 PROTECTION DEVICE 3MM ([id number]) T[place] 1 Small Medtronic 1 H1-S 331038 7370511 5679 81 5 Atherectomy catheter (H1S) CHOCOLATE 3.0 x Microtek 1 [id number] 630543 121976 8282 98 5 40 x 150 balloon Medical Inc. TW ([id number]) SABER 2.0 x 150 Cardinal 1 [id number] 458033 3161 92 5 x150 balloon Health ([id number]) IN.PACT Admiral 4 Medtronic 1 [id number] 065758 457849 8350 96 5 [id number] x 40 x 130 DCB Balloon ([id number]) ROADRUNNER .035 [facility] 1 E62821 449418 252267 7176 18 5 [id number] 145 glide wire (X28233) Tegaderm 6 x 8 3M 1 1628 211741 7748 94 5 (1628) Signature Audit [place] Stage Time Signature Unsigned Intra-Procedure 07/12/2017 Gagandeep 2:55:41 PM Sharita RT (R) (CV) Signatures Monitor : Gagandeep Signature : Sharita RT Date : Time : [id number] [place] [address]
[~2017-07-12 08:38] MED LIST changes: +AVAPRO150 MG PO; +CARDURA1 MG PO; +CEFUROXIME250 MG PO; +FLORAJEN3 CAPS460 MG PO; +NORVASC10 MG PO; +OMEPRAZOLE20 M1 PO; +PROVENTIL/2.5 MG/3 M INH; -REGLAN10 MG PO; +REGLAN5 MG PO; +ULTRAM50 MG PO; +ZOFRAN ODT4 MG/UDTAB PO
[2017-07-12 09:40] LABS: ANION GAP 6.8 mmol/L (8-16); CALCIUM 8.7 mg/dL (8.5-10.1); CREATININE - SERUM 3.3 mg/dL (0.6-1.3); POTASSIUM - SERUM 3.8 mmol/L (3.5-5.1)
[2017-07-12 09:41] LABS: BASOPHILS 0.7 % (0-2); EOSINOPHILS 4.5 % (0-7); HEMATOCRIT 34.7 % (42.0-54.0); HEMOGLOBIN 11.7 g/dL (13.5-17.5); IMMATURE GRANULOCYTES 0.2 % (0-5); LYMPHOCYTES 20.5 % (15-50); MCH 33.4 pg (26.0-34.0); MCHC 33.7 g/dL (31.0-37.0); MCV 99.1 fL (80.0-100.0); MEAN PLATELET VOLUME 9.4 fL (7.4-10.4); MONOCYTES 12.7 % (2-11); NEUTROPHILS 61.4 % (40-80); RDW 16.6 % (11.5-14.5); WBC 5.8 10x3/uL (4.8-10.8)
[2017-07-12] MEDS ORDERED: HYDRALAZINE HCL25 MG PO (09:42)
[2017-07-12 09:44] LABS: INR 1.17 (0.85-1.17); PROTIME 14.4 SECONDS (11.6-15.0)
[2017-07-12 09:45] LABS: APTT 46.6 SECONDS (22.8-39.4)
[2017-07-12] MEDS ORDERED: CARAFATE1 G PO (09:46)
[2017-07-12] MEDS ORDERED: CARDURA1 MG PO (09:49)
[2017-07-12] MEDS ORDERED: FLORINEF 0.1 M0.1 MG PO (09:50)
[2017-07-12 09:51] LABS: PLATELET COUNT 158 10x3/uL (130-400)
[2017-07-12] MEDS ORDERED: BAYER CHEWABLE81 MG PO (09:54)
[2017-07-12 10:10] VITALS: BMI 34.0
[2017-07-12 22:40] VITALS: BP 148/77
[2017-07-13] VITALS (13 sets, daily range): BP systolic 141–153; BP diastolic 59–81; Ht 182.9 cm; Wt 82.6 kg
== END 2017-07-13 21:55 | disposition home or self-care (01) ==
LOC: D.SP 08:38 → D.RAD 11:00 → D.M2 21:24 → D.SP 07-13 21:55
PROVIDERS: General Practice
DX: I70.202 Unspecified atherosclerosis of native arteries of extremities, left leg (principal); N18.6 End stage renal disease; Z99.2 Dependence on renal dialysis; S91.302A Unspecified open wound, left foot, initial encounter; Z01.812 Encounter for preprocedural laboratory examination; Z86.39 Personal history of other endocrine, nutritional and metabolic disease

== ENCOUNTER 2017-10-10 12:39 | Inpatient (IN) | payer MEDICARE ==
[~2017-10-10] VITALS: Ht 182.9 cm; Wt 101.8 kg
--- NOTE | ~2017-10-10 | EC ---
PATIENT:JOSÉ ASHBY DATE OF SERVICE: 10/10/17 SEX: M MEDICAL RECORD: [id number] DATE OF : [birth year] LOCATION:D.M2 D.213 AGE OF PATIENT: 47 ADMISSION DATE: 10/10/17 REFERRING PHYSICIAN: INTERPRETING PHYSICIAN: YOLIE GUTIÉRREZ MD ECHOCARDIOGRAM REPORT ECHO CHARGES 5 ECHO LIMITED Date: 11/02 1 DOPPLER ECHO COLOR FLOW 2 DOPPLER ECHO PULSE CLINICAL DIAGNOSIS: CARDIOMEGALY - R/O RHF ECHOCARDIOGRAPHIC MEASUREMENTS (adult normal given) AC root (d.<3.7cm) 0 cm LV Septum d (<1.2 cm> 0 cm Valve Excursion 0 cm LV Septum (systole) 0 cm Left Atria (s.<4.0cm> 0 cm LVPW d(<1.2cm) 0 cm RV (d.<2.3cm) 0 cm LVPW (sytole) 0 cm LV diastole(<5.6CM) 0 cm MV E-F(>70mm/sec) 0 cm LV systole 0 cm LVOT Diameter 2.1 cm MV exc.(>10mm) 0 cm Est.ejection fraction (50-75%) % DOPPLER: LVIT 0 cm/sec A 0 cm/sec E 0 cm/sec LA 0 cm/sec RVSP 24.0 mmHg LVOT 124 cm/sec AOP1/2T 0 m/s Asc. Ao 254 cm/sec RVOT 0 cm/sec RA 0 cm/sec PA 0 cm/sec AV Gradient Peak 26.0 mmHg AV Mean 13.0 mmHg AV Area 1.6 cm MV Gradient Peak 0 mmHg MV Mean 0 mmHg MV Area 0 cm COMMENTS: LIMITED STUDY (COMPLETE ECHO DONE ON 10/11/17) Abrasive Band Winder: 1 ARABELLA KELLEYOE Electronics Engineering Professor: 4 Dr. Gutiérrez TAPE# PACS Pericardial Effusion N DATE OF SERVICE: Limited Echocardiographic Study - Transcutaneous FINDINGS: Left ventricle appears to be hyperdynamic. There are no obvious regional wall motion abnormalities. There appears to be left ventricular hypertrophy. Inflow characteristics suggest diastolic dysfunction. There are no obvious valvular abnormalities seen, although the patient does have mitral annular calcification and reverberation, it is difficult to rule out vegetation. There is no obvious vegetation upon this evaluation. ECHOCARDIOGRAM REPORT [id number] JOSÉ ASHBY CONCLUSION: The patient has left ventricular hypertrophy. The patient has hyperdynamic left ventricular function. No obvious change in valvular status. Cannot rule out vegetation on this study. If that is a clinical consideration, a transesophageal echocardiogram may be helpful. TRANSINT:[id number] Voice Confirmation ID: [id number] DOCUMENT ID: [id number] YOLIE GUTIÉRREZ MD at 1144 CC: [id number] DICTATION DATE: 11/02/17 165 SKI PATROL OFFICER: 11/02/17 5669 ADM IN [place] [id number] [place] [id number]
--- NOTE | ~2017-10-10 | EC ---
PATIENT:JOSÉ ASHBY DATE OF SERVICE: 10/10/17 SEX: M MEDICAL RECORD: [id number] DATE OF : [birth year] LOCATION:D.MS Mauricio AGE OF PATIENT: 47 ADMISSION DATE: 10/10/17 REFERRING PHYSICIAN: INTERPRETING PHYSICIAN: YOLIE GUTIÉRREZ MD ECHOCARDIOGRAM REPORT ECHO CHARGES 4 ECHO COMPLETE Date: 10/11 CLINICAL DIAGNOSIS: ASSESS LV FUN ECHOCARDIOGRAPHIC MEASUREMENTS (adult normal given) AC root (d.<3.7cm) 4.1 cm LV Septum d (<1.2 cm> 1.7 cm Valve Excursion 1.9 cm LV Septum (systole) 2.3 cm Left Atria (s.<4.0cm> 4.7 cm LVPW d(<1.2cm) 1.9 cm RV (d.<2.3cm) 5.3 cm LVPW (sytole) 2.2 cm LV diastole(<5.6CM) 4.5 cm MV E-F(>70mm/sec) cm LV systole 3.1 cm LVOT Diameter 1.7 cm MV exc.(>10mm) 1.5 cm Est.ejection fraction (50-75%) % DOPPLER: LVIT cm/sec A 109 cm/sec E 105 cm/sec LA cm/sec RVSP 22 mmHg LVOT 106 cm/sec AOP1/2T m/s Asc. Ao 214 cm/sec RVOT 86 cm/sec RA cm/sec PA 169 cm/sec AV Gradient Peak 18.28mmHg AV Mean 9.49 mmHg AV Area 1.2 cm MV Gradient Peak 6.02 mmHg MV Mean 3.13 mmHg MV Area cm COMMENTS: Evaporator Repairer: Naz NEVES Polygraph Operator: 2 Dr. Amaya TAPE# PACS Pericardial Effusion N DATE OF SERVICE: 10/11/2017 PROCEDURE: Transthoracic echocardiogram. FINDINGS: 1. The left ventricle has moderate to severe concentric left ventricular hypertrophy. Ejection fraction is 65% to 70%. 2. The left atrium is normal size, shape, and function. 3. The mitral valve has mitral annular calcification and thickening. 4. The aortic valve is sclerotic and thickened; however, there is no evidence ECHOCARDIOGRAM REPORT [id number] JOSÉ ASHBY of significant stenosis. The patient was bradycardic throughout the exam. 5. The mitral valve is grossly otherwise normal. 6. The tricuspid valve has trace tricuspid regurgitation. RVSP of 22 mmHg. 7. The right ventricle is severely dilated. 8. The right atrium is moderately dilated. 9. The pulmonic valve is normal. 10. The pericardium is normal. CONCLUSIONS: The patient has evidence of aortic valve sclerosis and hypertensive heart disease. TRANSINT:[id number] Voice Confirmation ID: [id number] DOCUMENT ID: [id number] YOLIE GUTIÉRREZ MD at 1702 CC: [id number] DICTATION DATE: 10/24/17 0806 PULMONOLOGIST INTENSIVIST: 10/24/17 1121 ADM IN [facility] [address] [place] [address]
--- NOTE | ~2017-10-10 | OP ---
PATIENT NAME: JOSÉ ASHBY MEDICAL RECORD: [id number] :72 LOCATION:D.MS Palacios2236 ADMISSION DATE:10/10/17 SURGEON: NICHOLAS METCALF MD DATE OF OPERATION: 10/14/2017 SURGEON: Nicholas Metcalf MD ANESTHESIA: General anesthesia by Damir High CRNA PREOPERATIVE DIAGNOSES: Quadriplegia, autonomic dysreflexia, inability to be catheterized, urinary retention, also phimosis with urethral meatal stricture. PROCEDURE: Dorsal slit, urethral stricture dilation. CLINICAL HISTORY: This is a 47-year-old male, who is quadriplegic. 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 The ICU staff are not able to insert a Weston catheter into the patient. Therefore, urology consultation was asked for. I am bringing him to the operating room initially with a view to performing cystoscopy and inserting a Weston catheter over wire. The patient is not on any antibiotics at the current time. However, he has renal failure and therefore, we did not give him any further antibiotics. DESCRIPTION OF PROCEDURE: The patient was initially given IV sedation. However, when we attempted to touch him, he was developing lot of spasms and therefore had to be given general anesthetic. It was soon became apparent that the main issue is phimosis along with penoscrotal edema. I attempted to get past the phimosis, but it was impossible to do so. Therefore, we gave 1% lidocaine with epinephrine and performed a dorsal penile nerve block at the base of the penis. A straight clamp was used to crush the penile foreskin in the dorsal portion. Metzenbaum scissors were used to make a dorsal slit. Eventually, as we moved proximally, we were able to fully expose the glans penis. The urethral meatus itself was quite narrow. Urethral meatal sounds to 20-Jordanian were used to dilate the urethral meatus. Thereafter, a 16-Jordanian Weston catheter was able to be inserted all the way into the bladder. The urine was extremely dirty and cloudy. Urine was obtained for culture. The balloon was inflated with 10 cc of sterile water. The edges of the slit were sutured to themselves using simple interrupted 4-0 Monocryl. Neosporin ointment was then applied on the cut edges of the dorsal slit. The patient was then awakened and brought to the recovery room. He will be transferred back to the intensive care unit afterwards. TRANSINT:[id number] Voice Confirmation ID: [id number] DOCUMENT ID: [id number] NICHOLAS METCALF MD at 1356 CC: [id number] DICTATION DATE: 10/14/17 1632 CASE INVESTIGATOR: 10/14/17 1747 ADM IN [place] [id number] [place] [address]
[~2017-10-10 12:39] MED LIST changes: +BAYER CHEWABLE81 MG PO; +CARAFATE1 G PO; +FLORINEF 0.1 M0.1 MG PO; +HYDRALAZINE HCL25 MG PO
[2017-10-10 13:52] LABS: BASOPHILS 0.5 % (0-2); EOSINOPHILS 1.8 % (0-7); HEMATOCRIT 26.1 % (42.0-54.0); HEMOGLOBIN 9.2 g/dL (13.5-17.5); IMMATURE GRANULOCYTES 0.7 % (0-5); LYMPHOCYTES 18.3 % (15-50); MCH 33.3 pg (26.0-34.0); MCHC 35.2 g/dL (31.0-37.0); MCV 94.6 fL (80.0-100.0); MEAN PLATELET VOLUME 9.7 fL (7.4-10.4); MONOCYTES 8.8 % (2-11); NEUTROPHILS 69.9 % (40-80); PLATELET COUNT 138 10x3/uL (130-400); RBC 2.76 10x6/uL (4.20-6.10); RDW 17.5 % (11.5-14.5); WBC 7.6 10x3/uL (4.8-10.8)
[2017-10-10 16:03] LABS: INR 1.86 (0.85-1.17); PROTIME 20.9 SECONDS (11.6-15.0)
[2017-10-10 16:21] LABS: ALBUMIN 1.3 g/dL (3.4-5.0); ANION GAP 7.4 mmol/L (8-16); BILIRUBIN - TOTAL 1.74 mg/dL (0.2-1.3); CALCIUM 7.9 mg/dL (8.5-10.1); CARBON DIOXIDE 29.2 mmol/L (21.0-32.0); CREATININE - SERUM 5.1 mg/dL (0.6-1.3); POTASSIUM - SERUM 3.6 mmol/L (3.5-5.1)
[2017-10-10 16:34] LABS: C-REACTIVE PROTEIN 10.7 mg/dL (0.0-0.9); THYROID STIMULATING HORMONE 5.17 uIU/mL (0.36-3.74); TROPONIN-I 0.028 ng/mL (0.000-0.060)
[2017-10-10 19:29] VITALS: BP 119/62
[2017-10-10 21:11] LABS: ERYTHROCYTE SEDIMENTATION RATE 30 mm/hr (0-15)
[2017-10-11] VITALS (7 sets, daily range): BP systolic 94–119; BP diastolic 39–55; BMI 28.6
[2017-10-11 05:05] LABS: BASOPHILS 0.7 % (0-2); EOSINOPHILS 2.5 % (0-7); HEMATOCRIT 26.3 % (42.0-54.0); HEMOGLOBIN 9.1 g/dL (13.5-17.5); IMMATURE GRANULOCYTES 0.3 % (0-5); LYMPHOCYTES 19.5 % (15-50); MCH 32.9 pg (26.0-34.0); MCHC 34.6 g/dL (31.0-37.0); MCV 94.9 fL (80.0-100.0); MEAN PLATELET VOLUME 9.5 fL (7.4-10.4); MONOCYTES 6.9 % (2-11); NEUTROPHILS 70.1 % (40-80); PLATELET COUNT 138 10x3/uL (130-400); RBC 2.77 10x6/uL (4.20-6.10); RDW 17.5 % (11.5-14.5); WBC 7.3 10x3/uL (4.8-10.8)
[2017-10-11 05:20] LABS: ALBUMIN 1.3 g/dL (3.4-5.0); ANION GAP 5.8 mmol/L (8-16); BILIRUBIN - TOTAL 1.81 mg/dL (0.2-1.3); CARBON DIOXIDE 31.2 mmol/L (21.0-32.0); CREATININE - SERUM 5.6 mg/dL (0.6-1.3)
[2017-10-12] VITALS (13 sets, daily range): BP systolic 87–116; BP diastolic 49–68
[2017-10-12 07:39] LABS: BASOPHILS 0.3 % (0-2); EOSINOPHILS 1.8 % (0-7); HEMATOCRIT 24.9 % (42.0-54.0); HEMOGLOBIN 8.8 g/dL (13.5-17.5); IMMATURE GRANULOCYTES 0.3 % (0-5); LYMPHOCYTES 20.4 % (15-50); MCHC 35.3 g/dL (31.0-37.0); MCV 93.3 fL (80.0-100.0); MEAN PLATELET VOLUME 9.8 fL (7.4-10.4); MONOCYTES 4.8 % (2-11); NEUTROPHILS 72.4 % (40-80); PLATELET COUNT 121 10x3/uL (130-400); RBC 2.67 10x6/uL (4.20-6.10); RDW 17.5 % (11.5-14.5); WBC 6.1 10x3/uL (4.8-10.8)
[2017-10-12 07:46] LABS: INR 1.81 (0.85-1.17); PROTIME 20.4 SECONDS (11.6-15.0)
[2017-10-12 07:53] LABS: ALBUMIN 1.5 g/dL (3.4-5.0); BILIRUBIN - TOTAL 2.49 mg/dL (0.2-1.3); CARBON DIOXIDE 27.2 mmol/L (21.0-32.0); CREATININE - SERUM 6.4 mg/dL (0.6-1.3); POTASSIUM - SERUM 4.2 mmol/L (3.5-5.1); PROTEIN - SERUM 7.3 g/dL (6.4-8.2); VANCOMYCIN - RANDOM 7.5 ug/mL (10.0-20.0)
[2017-10-12 08:20] LABS: % SATURATION 140 % (15-55); IRON 66 ug/dl (35-150); TOTAL IRON BIND CAPACITY 47 ug/dl (260-445)
[2017-10-13] VITALS (29 sets, daily range): BP systolic 92–136; BP diastolic 60–80; BMI 29.5
[2017-10-13 04:23] LABS: BASOPHILS 0.9 % (0-2); EOSINOPHILS 2.2 % (0-7); HEMATOCRIT 23.4 % (42.0-54.0); HEMOGLOBIN 8.3 g/dL (13.5-17.5); IMMATURE GRANULOCYTES 0.2 % (0-5); LYMPHOCYTES 22.7 % (15-50); MCH 32.4 pg (26.0-34.0); MCHC 35.5 g/dL (31.0-37.0); MCV 91.4 fL (80.0-100.0); MEAN PLATELET VOLUME 10.3 fL (7.4-10.4); MONOCYTES 8.6 % (2-11); NEUTROPHILS 65.4 % (40-80); PLATELET COUNT 120 10x3/uL (130-400); RBC 2.56 10x6/uL (4.20-6.10); RDW 17.6 % (11.5-14.5); WBC 5.3 10x3/uL (4.8-10.8)
[2017-10-13 04:33] LABS: INR 2.02 (0.85-1.17); PROTIME 22.3 SECONDS (11.6-15.0)
[2017-10-13 04:40] LABS: ALBUMIN 1.5 g/dL (3.4-5.0); ANION GAP 11.2 mmol/L (8-16); BILIRUBIN - TOTAL 1.89 mg/dL (0.2-1.3); CALCIUM 7.5 mg/dL (8.5-10.1); CARBON DIOXIDE 27.6 mmol/L (21.0-32.0); CREATININE - SERUM 6.9 mg/dL (0.6-1.3); PHOSPHOROUS 5.6 mg/dL (2.5-4.9); POTASSIUM - SERUM 4.8 mmol/L (3.5-5.1); PROTEIN - SERUM 6.8 g/dL (6.4-8.2); VANCOMYCIN - RANDOM 9.3 ug/mL (10.0-20.0)
[2017-10-13 09:19] LABS: FOLATE (FOLIC ACID) - SERUM >20.0 ng/mL (>3.0)
[2017-10-14] VITALS (17 sets, daily range): BP systolic 111–142; BP diastolic 57–87; Ht 182.9 cm; Wt 101.8 kg
[2017-10-14 03:33] LABS: BASOPHILS 0.6 % (0-2); EOSINOPHILS 1.8 % (0-7); HEMOGLOBIN 8.9 g/dL (13.5-17.5); IMMATURE GRANULOCYTES 0.1 % (0-5); LYMPHOCYTES 20.6 % (15-50); MCH 32.1 pg (26.0-34.0); MCHC 35.6 g/dL (31.0-37.0); MCV 90.3 fL (80.0-100.0); MEAN PLATELET VOLUME 10.4 fL (7.4-10.4); MONOCYTES 10.6 % (2-11); NEUTROPHILS 66.3 % (40-80); PLATELET COUNT 105 10x3/uL (130-400); RBC 2.77 10x6/uL (4.20-6.10); RDW 17.5 % (11.5-14.5)
[2017-10-14 03:34] LABS: WBC 6.7 10x3/uL (4.8-10.8)
[2017-10-14 03:47] LABS: INR 1.88 (0.85-1.17)
[2017-10-14 03:54] LABS: ALBUMIN 1.6 g/dL (3.4-5.0); BILIRUBIN - TOTAL 1.77 mg/dL (0.2-1.3); CALCIUM 7.5 mg/dL (8.5-10.1); PROTEIN - SERUM 6.8 g/dL (6.4-8.2); VANCOMYCIN - RANDOM 15.7 ug/mL (10.0-20.0)
[2017-10-14 03:55] LABS: ANION GAP 10.9 mmol/L (8-16); CREATININE - SERUM 4.6 mg/dL (0.6-1.3); PHOSPHOROUS 3.8 mg/dL (2.5-4.9); POTASSIUM - SERUM 3.9 mmol/L (3.5-5.1)
[2017-10-15 01:52] VITALS: BP 126/66
[2017-10-15 04:50] VITALS: BP 126/66
[2017-10-15 07:39] LABS: BASOPHILS 0.7 % (0-2); EOSINOPHILS 2.5 % (0-7); HEMATOCRIT 23.8 % (42.0-54.0); HEMOGLOBIN 8.4 g/dL (13.5-17.5); IMMATURE GRANULOCYTES 0.4 % (0-5); MCH 31.9 pg (26.0-34.0); MCHC 35.3 g/dL (31.0-37.0); MCV 90.5 fL (80.0-100.0); MEAN PLATELET VOLUME 10.1 fL (7.4-10.4); MONOCYTES 12.1 % (2-11); NEUTROPHILS 60.3 % (40-80); PLATELET COUNT 95 10x3/uL (130-400); RBC 2.63 10x6/uL (4.20-6.10); RDW 17.4 % (11.5-14.5)
[2017-10-15 07:42] LABS: WBC 8.9 10x3/uL (4.8-10.8)
[2017-10-15 07:50] LABS: INR 2.19 (0.85-1.17); PROTIME 23.7 SECONDS (11.6-15.0)
[2017-10-15 08:00] LABS: ALBUMIN 1.6 g/dL (3.4-5.0); ANION GAP 10.2 mmol/L (8-16); BILIRUBIN - TOTAL 2.13 mg/dL (0.2-1.3); CALCIUM 7.8 mg/dL (8.5-10.1); CARBON DIOXIDE 27.1 mmol/L (21.0-32.0); POTASSIUM - SERUM 4.3 mmol/L (3.5-5.1); PROTEIN - SERUM 6.5 g/dL (6.4-8.2); VANCOMYCIN - RANDOM 13.8 ug/mL (10.0-20.0)
[2017-10-15 08:01] LABS: CREATININE - SERUM 5.9 mg/dL (0.6-1.3); PHOSPHOROUS 5.2 mg/dL (2.5-4.9)
[2017-10-15 08:02] LABS: PLATELET ESTIMATE DECREASED
[2017-10-15 09:27] VITALS: BP 118/71
[2017-10-15 14:07] VITALS: BP 113/60
[2017-10-15 22:37] VITALS: BP 134/48
[2017-10-16 04:06] VITALS: BP 154/64
[2017-10-16 06:39] LABS: BASOPHILS 0.8 % (0-2); EOSINOPHILS 2.3 % (0-7); HEMATOCRIT 25.7 % (42.0-54.0); HEMOGLOBIN 8.8 g/dL (13.5-17.5); IMMATURE GRANULOCYTES 0.2 % (0-5); LYMPHOCYTES 17.8 % (15-50); MCH 31.5 pg (26.0-34.0); MCHC 34.2 g/dL (31.0-37.0); MCV 92.1 fL (80.0-100.0); MEAN PLATELET VOLUME 9.8 fL (7.4-10.4); MONOCYTES 10.2 % (2-11); NEUTROPHILS 68.7 % (40-80); PLATELET COUNT 81 10x3/uL (130-400); RBC 2.79 10x6/uL (4.20-6.10); RDW 18.4 % (11.5-14.5); WBC 9.6 10x3/uL (4.8-10.8)
[2017-10-16 06:50] LABS: INR 2.26 (0.85-1.17); PROTIME 24.3 SECONDS (11.6-15.0)
[2017-10-16 08:25] VITALS: BP 119/55
[2017-10-16 09:04] LABS: ALBUMIN 1.6 g/dL (3.4-5.0); ANION GAP 8.7 mmol/L (8-16); BILIRUBIN - TOTAL 2.42 mg/dL (0.2-1.3); CALCIUM 7.7 mg/dL (8.5-10.1); CARBON DIOXIDE 29.5 mmol/L (21.0-32.0); CREATININE - SERUM 4.7 mg/dL (0.6-1.3); POTASSIUM - SERUM 4.2 mmol/L (3.5-5.1); PROTEIN - SERUM 6.1 g/dL (6.4-8.2); VANCOMYCIN - RANDOM 21.4 ug/mL (10.0-20.0)
[2017-10-16 11:37] VITALS: BP 119/66
[2017-10-16 16:05] VITALS: BP 120/62
[2017-10-16 22:41] VITALS: BP 109/58
[2017-10-17 03:58] VITALS: BP 124/54
[2017-10-17 06:29] LABS: BASOPHILS 0.8 % (0-2); EOSINOPHILS 1.9 % (0-7); HEMATOCRIT 23.5 % (42.0-54.0); HEMOGLOBIN 8.3 g/dL (13.5-17.5); IMMATURE GRANULOCYTES 0.1 % (0-5); MCHC 35.3 g/dL (31.0-37.0); MCV 90.7 fL (80.0-100.0); MONOCYTES 12.3 % (2-11); NEUTROPHILS 63.9 % (40-80); PLATELET COUNT 76 10x3/uL (130-400); RBC 2.59 10x6/uL (4.20-6.10); RDW 18.1 % (11.5-14.5); WBC 8.8 10x3/uL (4.8-10.8)
[2017-10-17 06:38] LABS: INR 2.24 (0.85-1.17); PROTIME 24.2 SECONDS (11.6-15.0)
[2017-10-17 07:13] LABS: ALBUMIN 1.6 g/dL (3.4-5.0); ANION GAP 10.9 mmol/L (8-16); BILIRUBIN - TOTAL 2.99 mg/dL (0.2-1.3); CARBON DIOXIDE 27.2 mmol/L (21.0-32.0); CREATININE - SERUM 5.8 mg/dL (0.6-1.3); MAGNESIUM - SERUM 2.2 mg/dL (1.8-2.4); POTASSIUM - SERUM 4.1 mmol/L (3.5-5.1); PROTEIN - SERUM 6.3 g/dL (6.4-8.2); VANCOMYCIN - RANDOM 19.5 ug/mL (10.0-20.0)
[2017-10-17 08:12] VITALS: BP 110/54
[2017-10-17 08:23] LABS: ALBUMIN 1.6 g/dL (3.4-5.0); BILIRUBIN - DIRECT 2.12 mg/dL (0.00-0.30); BILIRUBIN - INDIRECT 0.83 mg/dL (0.00-1.00); BILIRUBIN - TOTAL 2.95 mg/dL (0.2-1.3); PROTEIN - SERUM 6.1 g/dL (6.4-8.2)
[2017-10-17 12:43] VITALS: BP 119/50
[2017-10-17 16:03] VITALS: BP 124/63
[2017-10-17 21:29] VITALS: BP 116/61
[2017-10-17 23:47] VITALS: BP 124/64
[2017-10-18 04:22] VITALS: BP 116/63
[2017-10-18 06:51] LABS: EOSINOPHILS 3.2 % (0-7); IMMATURE GRANULOCYTES 0.2 % (0-5); LYMPHOCYTES 21.4 % (15-50); MCH 31.6 pg (26.0-34.0); MCHC 34.8 g/dL (31.0-37.0); MCV 90.9 fL (80.0-100.0); MEAN PLATELET VOLUME 9.7 fL (7.4-10.4); MONOCYTES 12.3 % (2-11); NEUTROPHILS 61.9 % (40-80); PLATELET COUNT 74 10x3/uL (130-400); RBC 2.31 10x6/uL (4.20-6.10); RDW 17.9 % (11.5-14.5)
[2017-10-18 07:02] LABS: INR 2.36 (0.85-1.17); PROTIME 25.2 SECONDS (11.6-15.0)
[2017-10-18 07:08] LABS: HEMOGLOBIN 7.3 g/dL (13.5-17.5)
[2017-10-18 07:21] LABS: ALBUMIN 1.6 g/dL (3.4-5.0); ANION GAP 12.5 mmol/L (8-16); BILIRUBIN - TOTAL 2.98 mg/dL (0.2-1.3); CALCIUM 7.9 mg/dL (8.5-10.1); CARBON DIOXIDE 27.6 mmol/L (21.0-32.0); CREATININE - SERUM 6.8 mg/dL (0.6-1.3); PHOSPHOROUS 5.3 mg/dL (2.5-4.9); POTASSIUM - SERUM 4.1 mmol/L (3.5-5.1); VANCOMYCIN - RANDOM 18.4 ug/mL (10.0-20.0)
[2017-10-18 16:02] VITALS: BP 101/56
[2017-10-18 20:13] VITALS: BP 130/67
[2017-10-19] VITALS (7 sets, daily range): BP systolic 112–148; BP diastolic 54–78
[2017-10-19 07:17] LABS: INR 2.22 (0.85-1.17)
[2017-10-19 07:19] LABS: EOSINOPHILS 3.5 % (0-7); HEMATOCRIT 21.9 % (42.0-54.0); IMMATURE GRANULOCYTES 0.2 % (0-5); LYMPHOCYTES 26.2 % (15-50); MCH 30.6 pg (26.0-34.0); MCHC 33.8 g/dL (31.0-37.0); MCV 90.5 fL (80.0-100.0); MEAN PLATELET VOLUME 9.3 fL (7.4-10.4); MONOCYTES 13.8 % (2-11); NEUTROPHILS 54.3 % (40-80); PLATELET COUNT 69 10x3/uL (130-400); RBC 2.42 10x6/uL (4.20-6.10); RDW 17.6 % (11.5-14.5)
[2017-10-19 07:21] LABS: ALBUMIN 1.8 g/dL (3.4-5.0); ANION GAP 8.9 mmol/L (8-16); BILIRUBIN - TOTAL 3.29 mg/dL (0.2-1.3); CARBON DIOXIDE 30.1 mmol/L (21.0-32.0); CREATININE - SERUM 5.4 mg/dL (0.6-1.3); PHOSPHOROUS 4.5 mg/dL (2.5-4.9); PROTEIN - SERUM 6.1 g/dL (6.4-8.2); VANCOMYCIN - RANDOM 15.2 ug/mL (10.0-20.0)
[2017-10-19 07:35] LABS: HEMOGLOBIN 7.4 g/dL (13.5-17.5)
[2017-10-20 01:23] VITALS: BP 136/65
[2017-10-20 04:10] VITALS: BP 127/62
[2017-10-20 05:04] LABS: BASOPHILS 1.5 % (0-2); EOSINOPHILS 3.3 % (0-7); HEMATOCRIT 23.3 % (42.0-54.0); HEMOGLOBIN 8.1 g/dL (13.5-17.5); IMMATURE GRANULOCYTES 0.2 % (0-5); LYMPHOCYTES 29.7 % (15-50); MCH 31.3 pg (26.0-34.0); MCHC 34.8 g/dL (31.0-37.0); MEAN PLATELET VOLUME 9.1 fL (7.4-10.4); MONOCYTES 15.6 % (2-11); NEUTROPHILS 49.7 % (40-80); PLATELET COUNT 78 10x3/uL (130-400); RBC 2.59 10x6/uL (4.20-6.10); RDW 17.7 % (11.5-14.5); WBC 5.8 10x3/uL (4.8-10.8)
[2017-10-20 05:11] LABS: INR 1.89 (0.85-1.17); PROTIME 21.1 SECONDS (11.6-15.0)
[2017-10-20 05:19] LABS: ALBUMIN 1.7 g/dL (3.4-5.0); ANION GAP 8.5 mmol/L (8-16); BILIRUBIN - TOTAL 3.73 mg/dL (0.2-1.3); CALCIUM 8.1 mg/dL (8.5-10.1); CARBON DIOXIDE 29.1 mmol/L (21.0-32.0); CREATININE - SERUM 6.5 mg/dL (0.6-1.3); PHOSPHOROUS 4.4 mg/dL (2.5-4.9); POTASSIUM - SERUM 4.6 mmol/L (3.5-5.1); PROTEIN - SERUM 6.6 g/dL (6.4-8.2); VANCOMYCIN - RANDOM 15.1 ug/mL (10.0-20.0)
[2017-10-20 09:31] VITALS: BP 127/66
[2017-10-20 16:44] VITALS: BP 107/64
[2017-10-20 19:54] VITALS: BP 135/56
[2017-10-21 00:35] VITALS: BP 143/55
[2017-10-21 04:31] VITALS: BP 138/60
[2017-10-21 07:35] LABS: BASOPHILS 1.6 % (0-2); EOSINOPHILS 2.7 % (0-7); HEMATOCRIT 22.6 % (42.0-54.0); HEMOGLOBIN 7.6 g/dL (13.5-17.5); IMMATURE GRANULOCYTES 0.2 % (0-5); LYMPHOCYTES 29.2 % (15-50); MCH 30.6 pg (26.0-34.0); MCHC 33.6 g/dL (31.0-37.0); MCV 91.1 fL (80.0-100.0); MEAN PLATELET VOLUME 9.7 fL (7.4-10.4); MONOCYTES 13.9 % (2-11); NEUTROPHILS 52.4 % (40-80); PLATELET COUNT 69 10x3/uL (130-400); RBC 2.48 10x6/uL (4.20-6.10); WBC 6.3 10x3/uL (4.8-10.8)
[2017-10-21 07:50] LABS: INR 2.44 (0.85-1.17); PROTIME 25.9 SECONDS (11.6-15.0)
[2017-10-21 08:22] LABS: ALBUMIN 1.9 g/dL (3.4-5.0); ANION GAP 9.4 mmol/L (8-16); BILIRUBIN - TOTAL 3.78 mg/dL (0.2-1.3); CALCIUM 8.3 mg/dL (8.5-10.1); CARBON DIOXIDE 29.8 mmol/L (21.0-32.0); PHOSPHOROUS 4.5 mg/dL (2.5-4.9); POTASSIUM - SERUM 4.2 mmol/L (3.5-5.1); PROTEIN - SERUM 6.6 g/dL (6.4-8.2)
[2017-10-21 09:01] VITALS: BP 97/42
[2017-10-21 13:45] VITALS: BP 127/66
[2017-10-21 14:24] LABS: HEPATITIS C ANTIBODY 0.3 (0.0-0.9)
[2017-10-21 16:09] VITALS: BP 122/56
[2017-10-21 19:48] VITALS: BP 147/66
[2017-10-22 01:16] VITALS: BP 145/69
[2017-10-22 04:09] VITALS: BP 149/69
[2017-10-22 07:13] LABS: BASOPHILS 1.3 % (0-2); EOSINOPHILS 2.1 % (0-7); HEMATOCRIT 23.1 % (42.0-54.0); HEMOGLOBIN 7.7 g/dL (13.5-17.5); IMMATURE GRANULOCYTES 0.2 % (0-5); LYMPHOCYTES 24.1 % (15-50); MCH 30.6 pg (26.0-34.0); MCHC 33.3 g/dL (31.0-37.0); MCV 91.7 fL (80.0-100.0); MEAN PLATELET VOLUME 9.8 fL (7.4-10.4); MONOCYTES 14.6 % (2-11); NEUTROPHILS 57.7 % (40-80); PLATELET COUNT 60 10x3/uL (130-400); RBC 2.52 10x6/uL (4.20-6.10); RDW 18.4 % (11.5-14.5)
[2017-10-22 07:14] LABS: WBC 8.2 10x3/uL (4.8-10.8)
[2017-10-22 08:03] LABS: PLATELET ESTIMATE DECREASED
[2017-10-22 08:23] VITALS: BP 150/75
[2017-10-22 11:53] VITALS: BP 153/24
[2017-10-22 13:57] LABS: INR 2.29 (0.85-1.17); PROTIME 24.6 SECONDS (11.6-15.0)
[2017-10-22 14:33] LABS: ALBUMIN 2.2 g/dL (3.4-5.0); BILIRUBIN - TOTAL 4.12 mg/dL (0.2-1.3); CALCIUM 8.4 mg/dL (8.5-10.1); CARBON DIOXIDE 29.4 mmol/L (21.0-32.0); CREATININE - SERUM 8.6 mg/dL (0.6-1.3); POTASSIUM - SERUM 4.4 mmol/L (3.5-5.1); PROTEIN - SERUM 6.9 g/dL (6.4-8.2); VANCOMYCIN - RANDOM 13.7 ug/mL (10.0-20.0)
[2017-10-22 20:22] VITALS: BP 179/76
[2017-10-23 06:48] LABS: BASOPHILS 1.1 % (0-2); EOSINOPHILS 2.3 % (0-7); HEMATOCRIT 26.4 % (42.0-54.0); HEMOGLOBIN 9.1 g/dL (13.5-17.5); IMMATURE GRANULOCYTES 0.4 % (0-5); LYMPHOCYTES 22.5 % (15-50); MCH 30.6 pg (26.0-34.0); MCHC 34.5 g/dL (31.0-37.0); MEAN PLATELET VOLUME 9.2 fL (7.4-10.4); MONOCYTES 16.1 % (2-11); NEUTROPHILS 57.6 % (40-80); PLATELET COUNT 56 10x3/uL (130-400); RBC 2.97 10x6/uL (4.20-6.10); RDW 17.7 % (11.5-14.5); WBC 8.1 10x3/uL (4.8-10.8)
[2017-10-23 06:58] LABS: MCV 88.9 fL (80.0-100.0)
[2017-10-23 07:22] LABS: ALBUMIN 2.2 g/dL (3.4-5.0); ANION GAP 9.2 mmol/L (8-16); BILIRUBIN - TOTAL 4.63 mg/dL (0.2-1.3); CALCIUM 8.3 mg/dL (8.5-10.1); CARBON DIOXIDE 29.5 mmol/L (21.0-32.0); CREATININE - SERUM 7.1 mg/dL (0.6-1.3); PHOSPHOROUS 4.4 mg/dL (2.5-4.9); PROTEIN - SERUM 7.2 g/dL (6.4-8.2)
[2017-10-23 07:24] LABS: POTASSIUM - SERUM 3.7 mmol/L (3.5-5.1)
[2017-10-23 09:37] VITALS: BP 158/81
[2017-10-23 09:40] LABS: INR 2.22 (0.85-1.17); PROTIME 23.6 SECONDS (11.6-15.0)
[2017-10-23 13:24] VITALS: BP 154/80
[2017-10-23 17:37] VITALS: BP 144/62
[2017-10-23 19:33] VITALS: BP 177/63
[2017-10-23 23:43] VITALS: BP 153/71
[2017-10-24] VITALS (22 sets, daily range): BP systolic 65–157; BP diastolic 23–77
[2017-10-24 06:34] LABS: BASOPHILS 1.5 % (0-2); EOSINOPHILS 3.5 % (0-7); HEMATOCRIT 27.5 % (42.0-54.0); HEMOGLOBIN 9.3 g/dL (13.5-17.5); IMMATURE GRANULOCYTES 0.1 % (0-5); LYMPHOCYTES 17.8 % (15-50); MCH 30.2 pg (26.0-34.0); MCHC 33.8 g/dL (31.0-37.0); MCV 89.3 fL (80.0-100.0); MEAN PLATELET VOLUME 9.7 fL (7.4-10.4); NEUTROPHILS 59.1 % (40-80); PLATELET COUNT 66 10x3/uL (130-400); RBC 3.08 10x6/uL (4.20-6.10); RDW 18.2 % (11.5-14.5); WBC 7.1 10x3/uL (4.8-10.8)
[2017-10-24 07:06] LABS: ALBUMIN 2.2 g/dL (3.4-5.0); ANION GAP 9.6 mmol/L (8-16); BILIRUBIN - TOTAL 5.04 mg/dL (0.2-1.3); CALCIUM 8.7 mg/dL (8.5-10.1); CARBON DIOXIDE 28.9 mmol/L (21.0-32.0); CREATININE - SERUM 7.9 mg/dL (0.6-1.3); POTASSIUM - SERUM 3.5 mmol/L (3.5-5.1); PROTEIN - SERUM 7.1 g/dL (6.4-8.2)
[2017-10-24 07:07] LABS: INR 2.3 (0.85-1.17); PROTIME 24.3 SECONDS (11.6-15.0)
[2017-10-24 19:12] LABS: HEMATOCRIT 24.9 % (42.0-54.0); MCHC 32.1 g/dL (31.0-37.0); MEAN PLATELET VOLUME 10.5 fL (7.4-10.4); RBC 2.67 10x6/uL (4.20-6.10); RDW 18.4 % (11.5-14.5)
[2017-10-24 19:13] LABS: MCV 93.3 fL (80.0-100.0); WBC 10.1 10x3/uL (4.8-10.8)
[2017-10-24 19:14] LABS: PLATELET COUNT 49 10x3/uL (130-400)
[2017-10-24 19:32] LABS: ANISOCYTOSIS OCC; LYMPHOCYTES 24 % (15-50); MONOCYTES 9 % (2-11); NEUTROPHILS 65 % (40-80); PLATELET ESTIMATE DECREASED
[2017-10-25] VITALS (51 sets, daily range): BP systolic 12–140; BP diastolic 48–92
[2017-10-25 03:24] LABS: BASOPHILS 1.4 % (0-2); HEMATOCRIT 23.9 % (42.0-54.0); HEMOGLOBIN 7.9 g/dL (13.5-17.5); IMMATURE GRANULOCYTES 0.1 % (0-5); LYMPHOCYTES 18.8 % (15-50); MCH 29.9 pg (26.0-34.0); MCHC 33.1 g/dL (31.0-37.0); MEAN PLATELET VOLUME 10.2 fL (7.4-10.4); MONOCYTES 18.2 % (2-11); NEUTROPHILS 58.5 % (40-80); RBC 2.64 10x6/uL (4.20-6.10); WBC 10.1 10x3/uL (4.8-10.8)
[2017-10-25 03:25] LABS: MCV 90.5 fL (80.0-100.0); PLATELET COUNT 71 10x3/uL (130-400)
[2017-10-25 03:37] LABS: INR 2.72 (0.85-1.17); PROTIME 28.1 SECONDS (11.6-15.0)
[2017-10-25 03:39] LABS: ALBUMIN 1.8 g/dL (3.4-5.0); ANION GAP 11.6 mmol/L (8-16); BILIRUBIN - DIRECT 3.7 mg/dL (0.00-0.30); BILIRUBIN - INDIRECT 1.94 mg/dL (0.00-1.00); BILIRUBIN - TOTAL 5.64 mg/dL (0.2-1.3); CALCIUM 8.3 mg/dL (8.5-10.1); CARBON DIOXIDE 25.9 mmol/L (21.0-32.0); CREATININE - SERUM 8.2 mg/dL (0.6-1.3); PHOSPHOROUS 5.4 mg/dL (2.5-4.9); POTASSIUM - SERUM 3.5 mmol/L (3.5-5.1); PROTEIN - SERUM 6.3 g/dL (6.4-8.2); VANCOMYCIN - RANDOM 11.5 ug/mL (10.0-20.0)
[2017-10-25 16:11] LABS: APPEARANCE TURBID (CLEAR); BILIRUBIN NEGATIVE (NEGATIVE); COLOR BROWN (YELLOW); GLUCOSE NEGATIVE (NEGATIVE); KETONE NEGATIVE (NEGATIVE); NITRITE NEGATIVE (NEGATIVE); PROTEIN 2+ mg/dL (NEGATIVE); UROBILINOGEN NORMAL (NORMAL)
[2017-10-25 16:13] LABS: RED CELLS - URINE 0-5 /hpf (0-5); WHITE CELLS - URINE 0-5 /hpf (0-5)
[2017-10-25 16:14] LABS: BACTERIA MANY /hpf (NONE SEEN)
[2017-10-26] VITALS (88 sets, daily range): BP systolic 86–149; BP diastolic 45–94
[2017-10-26 05:06] LABS: BASOPHILS 0.8 % (0-2); EOSINOPHILS 0.9 % (0-7); HEMATOCRIT 22.2 % (42.0-54.0); IMMATURE GRANULOCYTES 0.1 % (0-5); LYMPHOCYTES 8.9 % (15-50); MCH 30.4 pg (26.0-34.0); MCHC 33.8 g/dL (31.0-37.0); MCV 89.9 fL (80.0-100.0); MEAN PLATELET VOLUME 10.3 fL (7.4-10.4); MONOCYTES 7.2 % (2-11); NEUTROPHILS 82.1 % (40-80); PLATELET COUNT 71 10x3/uL (130-400); RBC 2.47 10x6/uL (4.20-6.10); RDW 18.7 % (11.5-14.5); WBC 8.8 10x3/uL (4.8-10.8)
[2017-10-26 05:14] LABS: HEMOGLOBIN 7.5 g/dL (13.5-17.5)
[2017-10-26 05:17] LABS: ALBUMIN 1.9 g/dL (3.4-5.0); ANION GAP 6.5 mmol/L (8-16); BILIRUBIN - TOTAL 6.61 mg/dL (0.2-1.3); CALCIUM 8.8 mg/dL (8.5-10.1); CARBON DIOXIDE 29.7 mmol/L (21.0-32.0); PHOSPHOROUS 4.6 mg/dL (2.5-4.9); POTASSIUM - SERUM 3.2 mmol/L (3.5-5.1); PROTEIN - SERUM 6.2 g/dL (6.4-8.2); VANCOMYCIN - RANDOM 17.9 ug/mL (10.0-20.0)
[2017-10-26 05:18] LABS: CREATININE - SERUM 5.9 mg/dL (0.6-1.3)
[2017-10-26 05:20] LABS: INR 2.77 (0.85-1.17); PROTIME 28.6 SECONDS (11.6-15.0)
[2017-10-27] VITALS (14 sets, daily range): BP systolic 110–136; BP diastolic 50–82
[2017-10-27 04:01] LABS: BASOPHILS 1.7 % (0-2); EOSINOPHILS 4.3 % (0-7); HEMATOCRIT 22.2 % (42.0-54.0); IMMATURE GRANULOCYTES 0.2 % (0-5); LYMPHOCYTES 22.3 % (15-50); MCH 30.2 pg (26.0-34.0); MCHC 33.8 g/dL (31.0-37.0); MCV 89.5 fL (80.0-100.0); MEAN PLATELET VOLUME 9.7 fL (7.4-10.4); MONOCYTES 16.3 % (2-11); NEUTROPHILS 55.2 % (40-80); PLATELET COUNT 58 10x3/uL (130-400); RBC 2.48 10x6/uL (4.20-6.10); RDW 18.3 % (11.5-14.5)
[2017-10-27 04:05] LABS: HEMOGLOBIN 7.5 g/dL (13.5-17.5); WBC 5.2 10x3/uL (4.8-10.8)
[2017-10-27 04:20] LABS: ALBUMIN 2.1 g/dL (3.4-5.0); ANION GAP 9.7 mmol/L (8-16); BILIRUBIN - TOTAL 7.67 mg/dL (0.2-1.3); CALCIUM 9.5 mg/dL (8.5-10.1); CARBON DIOXIDE 29.5 mmol/L (21.0-32.0); CREATININE - SERUM 6.9 mg/dL (0.6-1.3); PHOSPHOROUS 4.4 mg/dL (2.5-4.9); POTASSIUM - SERUM 3.2 mmol/L (3.5-5.1); PROTEIN - SERUM 6.2 g/dL (6.4-8.2); VANCOMYCIN - RANDOM 17.5 ug/mL (10.0-20.0)
[2017-10-28] VITALS: BP 102/51
[2017-10-28 05:36] VITALS: BP 101/50
[2017-10-28 06:51] LABS: BASOPHILS 1.5 % (0-2); EOSINOPHILS 3.9 % (0-7); HEMATOCRIT 23.7 % (42.0-54.0); HEMOGLOBIN 7.9 g/dL (13.5-17.5); IMMATURE GRANULOCYTES 0.2 % (0-5); LYMPHOCYTES 24.2 % (15-50); MCH 29.6 pg (26.0-34.0); MCHC 33.3 g/dL (31.0-37.0); MCV 88.8 fL (80.0-100.0); MEAN PLATELET VOLUME 9.3 fL (7.4-10.4); MONOCYTES 21.1 % (2-11); NEUTROPHILS 49.1 % (40-80); PLATELET COUNT 50 10x3/uL (130-400); RBC 2.67 10x6/uL (4.20-6.10); RDW 18.7 % (11.5-14.5); WBC 4.6 10x3/uL (4.8-10.8)
[2017-10-28 06:56] LABS: ALBUMIN 2.1 g/dL (3.4-5.0); BILIRUBIN - TOTAL 9.69 mg/dL (0.2-1.3); CARBON DIOXIDE 30.3 mmol/L (21.0-32.0); CREATININE - SERUM 5.8 mg/dL (0.6-1.3); PHOSPHOROUS 3.7 mg/dL (2.5-4.9); POTASSIUM - SERUM 3.3 mmol/L (3.5-5.1); PROTEIN - SERUM 6.4 g/dL (6.4-8.2)
[2017-10-28 08:19] VITALS: BP 144/72
[2017-10-28 11:23] VITALS: BP 109/61
[2017-10-28 20:02] VITALS: BP 125/41
[2017-10-29 00:24] VITALS: BP 115/66
[2017-10-29 05:03] LABS: BASOPHILS 1.4 % (0-2); EOSINOPHILS 3.5 % (0-7); HEMATOCRIT 22.1 % (42.0-54.0); IMMATURE GRANULOCYTES 0.5 % (0-5); MCH 29.8 pg (26.0-34.0); MCHC 33.5 g/dL (31.0-37.0); MCV 89.1 fL (80.0-100.0); MEAN PLATELET VOLUME 9.8 fL (7.4-10.4); MONOCYTES 19.5 % (2-11); NEUTROPHILS 48.1 % (40-80); RBC 2.48 10x6/uL (4.20-6.10); RDW 18.4 % (11.5-14.5); WBC 4.3 10x3/uL (4.8-10.8)
[2017-10-29 05:10] LABS: HEMOGLOBIN 7.4 g/dL (13.5-17.5); PLATELET COUNT 49 10x3/uL (130-400)
[2017-10-29 05:32] LABS: BILIRUBIN - TOTAL 9.65 mg/dL (0.2-1.3); CALCIUM 9.2 mg/dL (8.5-10.1); CARBON DIOXIDE 28.4 mmol/L (21.0-32.0); CREATININE - SERUM 6.6 mg/dL (0.6-1.3); PHOSPHOROUS 4.4 mg/dL (2.5-4.9); POTASSIUM - SERUM 3.4 mmol/L (3.5-5.1); PROTEIN - SERUM 6.5 g/dL (6.4-8.2); VANCOMYCIN - RANDOM 19.3 ug/mL (10.0-20.0)
[2017-10-29 06:13] VITALS: BP 125/66
[2017-10-29 08:09] VITALS: BP 126/67
[2017-10-29 11:10] LABS: HBV IU/ML 243000000 IU/mL (()); HBV IU/ML See Final Results IU/mL (()); LOG10 HBV IU/ML 8.386 (())
[2017-10-29 12:05] VITALS: BP 124/68
[2017-10-29 15:01] VITALS: BP 128/68
[2017-10-29 20:30] VITALS: BP 130/68
[2017-10-30 04:30] VITALS: BP 142/78
[2017-10-30 04:51] LABS: BASOPHILS 2.2 % (0-2); EOSINOPHILS 4.7 % (0-7); HEMATOCRIT 25.2 % (42.0-54.0); HEMOGLOBIN 8.6 g/dL (13.5-17.5); IMMATURE GRANULOCYTES 0.2 % (0-5); LYMPHOCYTES 23.5 % (15-50); MCH 29.8 pg (26.0-34.0); MCHC 34.1 g/dL (31.0-37.0); MCV 87.2 fL (80.0-100.0); MEAN PLATELET VOLUME 11.1 fL (7.4-10.4); MONOCYTES 20.6 % (2-11); NEUTROPHILS 48.8 % (40-80); RBC 2.89 10x6/uL (4.20-6.10); RDW 16.8 % (11.5-14.5)
[2017-10-30 04:54] LABS: ANION GAP 7.4 mmol/L (8-16); CALCIUM 8.7 mg/dL (8.5-10.1); CARBON DIOXIDE 31.9 mmol/L (21.0-32.0); CREATININE - SERUM 5.1 mg/dL (0.6-1.3); POTASSIUM - SERUM 3.3 mmol/L (3.5-5.1)
[2017-10-30 05:16] LABS: WBC 5.6 10x3/uL (4.8-10.8)
[2017-10-30 05:17] LABS: PLATELET COUNT 46 10x3/uL (130-400)
[2017-10-30 08:55] VITALS: BP 105/58; BP 145/39
[2017-10-30 10:44] LABS: INR 2.37 (0.85-1.17); PROTIME 25.2 SECONDS (11.6-15.0)
[2017-10-30 13:25] VITALS: BP 153/74
[2017-10-30 16:11] VITALS: BP 147/39
[2017-10-30 21:54] VITALS: BP 140/36
[2017-10-31 02:13] VITALS: BP 143/30
[2017-10-31 05:26] VITALS: BP 122/34
[2017-10-31 05:59] LABS: BASOPHILS 1.5 % (0-2); EOSINOPHILS 3.4 % (0-7); HEMATOCRIT 24.5 % (42.0-54.0); HEMOGLOBIN 8.4 g/dL (13.5-17.5); IMMATURE GRANULOCYTES 0.6 % (0-5); LYMPHOCYTES 28.7 % (15-50); MCHC 34.3 g/dL (31.0-37.0); MCV 87.5 fL (80.0-100.0); MEAN PLATELET VOLUME 10.6 fL (7.4-10.4); MONOCYTES 22.7 % (2-11); NEUTROPHILS 43.1 % (40-80); WBC 5.3 10x3/uL (4.8-10.8)
[2017-10-31 06:23] LABS: INR 2.79 (0.85-1.17); PROTIME 28.7 SECONDS (11.6-15.0)
[2017-10-31 06:34] LABS: PLATELET COUNT 49 10x3/uL (130-400)
[2017-10-31 06:39] LABS: ANION GAP 8.2 mmol/L (8-16); BILIRUBIN - DIRECT 6.53 mg/dL (0.00-0.30); BILIRUBIN - INDIRECT 3.16 mg/dL (0.00-1.00); BILIRUBIN - TOTAL 9.69 mg/dL (0.2-1.3); CALCIUM 8.7 mg/dL (8.5-10.1); CARBON DIOXIDE 31.2 mmol/L (21.0-32.0); POTASSIUM - SERUM 3.4 mmol/L (3.5-5.1); PROTEIN - SERUM 6.7 g/dL (6.4-8.2)
[2017-10-31 06:40] LABS: CREATININE - SERUM 6.5 mg/dL (0.6-1.3)
[2017-10-31 20:05] VITALS: BP 126/84
[2017-11-01 05:08] LABS: INR 2.7 (0.85-1.17); PROTIME 27.9 SECONDS (11.6-15.0)
[2017-11-01 05:17] VITALS: BP 132/49
[2017-11-01 05:23] LABS: BASOPHILS 1.7 % (0-2); EOSINOPHILS 5.3 % (0-7); HEMATOCRIT 23.6 % (42.0-54.0); HEMOGLOBIN 8.1 g/dL (13.5-17.5); IMMATURE GRANULOCYTES 0.6 % (0-5); LYMPHOCYTES 22.2 % (15-50); MCH 29.8 pg (26.0-34.0); MCHC 34.3 g/dL (31.0-37.0); MCV 86.8 fL (80.0-100.0); MEAN PLATELET VOLUME 10.7 fL (7.4-10.4); NEUTROPHILS 48.2 % (40-80); RBC 2.72 10x6/uL (4.20-6.10); WBC 4.7 10x3/uL (4.8-10.8)
[2017-11-01 05:25] LABS: PLATELET COUNT 46 10x3/uL (130-400)
[2017-11-01 05:49] LABS: BILIRUBIN - TOTAL 9.54 mg/dL (0.2-1.3); CALCIUM 8.9 mg/dL (8.5-10.1); CARBON DIOXIDE 29.8 mmol/L (21.0-32.0); CREATININE - SERUM 7.2 mg/dL (0.6-1.3); PHOSPHOROUS 5.1 mg/dL (2.5-4.9); PROTEIN - SERUM 6.7 g/dL (6.4-8.2)
[2017-11-01 05:50] LABS: ANION GAP 10.3 mmol/L (8-16); POTASSIUM - SERUM 4.1 mmol/L (3.5-5.1)
[2017-11-01 08:17] VITALS: BP 132/56
[2017-11-01 12:05] VITALS: BP 130/60
[2017-11-01 16:45] VITALS: BP 127/55
[2017-11-02] VITALS: BP 111/55
[2017-11-02 04:00] VITALS: BP 161/57
[2017-11-02 05:54] LABS: BASOPHILS 1.6 % (0-2); EOSINOPHILS 5.4 % (0-7); HEMOGLOBIN 9.7 g/dL (13.5-17.5); IMMATURE GRANULOCYTES 0.2 % (0-5); MCH 29.3 pg (26.0-34.0); MCHC 34.2 g/dL (31.0-37.0); MCV 85.8 fL (80.0-100.0); MEAN PLATELET VOLUME 10.8 fL (7.4-10.4); MONOCYTES 22.7 % (2-11); NEUTROPHILS 47.1 % (40-80); WBC 5.7 10x3/uL (4.8-10.8)
[2017-11-02 06:26] LABS: HEMATOCRIT 28.4 % (42.0-54.0); RBC 3.31 10x6/uL (4.20-6.10)
[2017-11-02 06:27] LABS: INR 2.51 (0.85-1.17); PROTIME 26.4 SECONDS (11.6-15.0)
[2017-11-02 06:37] LABS: PLATELET COUNT 37 10x3/uL (130-400)
[2017-11-02 06:54] LABS: BILIRUBIN - TOTAL 10.67 mg/dL (0.2-1.3); CALCIUM 8.8 mg/dL (8.5-10.1); PROTEIN - SERUM 7.1 g/dL (6.4-8.2)
[2017-11-02 07:03] LABS: ANION GAP 7.6 mmol/L (8-16); CARBON DIOXIDE 31.9 mmol/L (21.0-32.0); CREATININE - SERUM 6.2 mg/dL (0.6-1.3); PHOSPHOROUS 4.5 mg/dL (2.5-4.9); POTASSIUM - SERUM 3.5 mmol/L (3.5-5.1)
[2017-11-02 09:16] VITALS: BP 103/30
[2017-11-02 12:22] VITALS: BP 123/29
[2017-11-02 12:38] LABS: BASOPHILS 1.1 % (0-2); EOSINOPHILS 4.1 % (0-7); HEMATOCRIT 27.3 % (42.0-54.0); HEMOGLOBIN 9.3 g/dL (13.5-17.5); IMMATURE GRANULOCYTES 0.4 % (0-5); LYMPHOCYTES 21.2 % (15-50); MCH 29.7 pg (26.0-34.0); MCHC 34.1 g/dL (31.0-37.0); MCV 87.2 fL (80.0-100.0); MEAN PLATELET VOLUME 10.8 fL (7.4-10.4); MONOCYTES 19.4 % (2-11); NEUTROPHILS 53.8 % (40-80); RBC 3.13 10x6/uL (4.20-6.10); RDW 17.6 % (11.5-14.5); WBC 5.6 10x3/uL (4.8-10.8)
[2017-11-02 12:53] LABS: PLATELET COUNT 39 10x3/uL (130-400)
[2017-11-02 12:57] LABS: INR 2.13 (0.85-1.17); PROTIME 23.2 SECONDS (11.6-15.0)
[2017-11-02 12:58] LABS: APTT 62.9 SECONDS (22.8-39.4)
[2017-11-02 16:30] VITALS: BP 130/29
[2017-11-02 20:00] VITALS: BP 135/70
[2017-11-03 05:19] LABS: BASOPHILS 1.2 % (0-2); EOSINOPHILS 3.3 % (0-7); HEMATOCRIT 26.5 % (42.0-54.0); IMMATURE GRANULOCYTES 0.3 % (0-5); LYMPHOCYTES 22.6 % (15-50); MCH 29.1 pg (26.0-34.0); MCV 85.8 fL (80.0-100.0); MEAN PLATELET VOLUME 10.7 fL (7.4-10.4); MONOCYTES 19.7 % (2-11); NEUTROPHILS 52.9 % (40-80); RBC 3.09 10x6/uL (4.20-6.10); RDW 17.2 % (11.5-14.5); WBC 6.6 10x3/uL (4.8-10.8)
[2017-11-03 05:28] LABS: PLATELET COUNT 66 10x3/uL (130-400)
[2017-11-03 05:43] LABS: ALBUMIN 2.4 g/dL (3.4-5.0); ANION GAP 8.4 mmol/L (8-16); BILIRUBIN - TOTAL 11.22 mg/dL (0.2-1.3); CALCIUM 9.1 mg/dL (8.5-10.1); CARBON DIOXIDE 32.2 mmol/L (21.0-32.0); CREATININE - SERUM 7.4 mg/dL (0.6-1.3); PHOSPHOROUS 4.9 mg/dL (2.5-4.9); POTASSIUM - SERUM 3.6 mmol/L (3.5-5.1); PROTEIN - SERUM 7.2 g/dL (6.4-8.2)
[2017-11-03 05:48] LABS: INR 2.29 (0.85-1.17); PROTIME 24.6 SECONDS (11.6-15.0)
[2017-11-03 06:11] VITALS: BP 122/52
[2017-11-03 08:52] VITALS: BP 121/60
[2017-11-03 12:00] VITALS: BP 130/70
[2017-11-03 16:47] VITALS: BP 136/72
[2017-11-03 21:27] VITALS: BP 115/56
[2017-11-04 04:00] VITALS: BP 127/77
[2017-11-04 06:37] LABS: INR 2.4 (0.85-1.17); PROTIME 25.5 SECONDS (11.6-15.0)
[2017-11-04 06:38] LABS: APTT 69.3 SECONDS (22.8-39.4)
[2017-11-04 06:42] LABS: ANION GAP 11.4 mmol/L (8-16); BILIRUBIN - TOTAL 11.49 mg/dL (0.2-1.3); CALCIUM 9.1 mg/dL (8.5-10.1); CARBON DIOXIDE 29.2 mmol/L (21.0-32.0); CREATININE - SERUM 6.5 mg/dL (0.6-1.3); PHOSPHOROUS 4.8 mg/dL (2.5-4.9); POTASSIUM - SERUM 3.6 mmol/L (3.5-5.1); PROTEIN - SERUM 7.3 g/dL (6.4-8.2)
[2017-11-04 08:29] LABS: BASOPHILS 1.5 % (0-2); EOSINOPHILS 3.4 % (0-7); HEMATOCRIT 27.6 % (42.0-54.0); HEMOGLOBIN 9.3 g/dL (13.5-17.5); IMMATURE GRANULOCYTES 0.3 % (0-5); LYMPHOCYTES 18.8 % (15-50); MCH 29.2 pg (26.0-34.0); MCHC 33.7 g/dL (31.0-37.0); MCV 86.5 fL (80.0-100.0); MEAN PLATELET VOLUME 11.7 fL (7.4-10.4); MONOCYTES 12.6 % (2-11); NEUTROPHILS 63.4 % (40-80); PLATELET COUNT 58 10x3/uL (130-400); RBC 3.19 10x6/uL (4.20-6.10); RDW 16.9 % (11.5-14.5); WBC 7.1 10x3/uL (4.8-10.8)
[2017-11-04 08:39] VITALS: BP 113/74
[2017-11-04] MEDS ORDERED: XIFAXAN550 MG PO (10:28)
[2017-11-04] MEDS ORDERED: PEPCID20 MG PO (10:29)
[2017-11-04] MEDS ORDERED: CHRONULAC30 ML PO (10:29)
[2017-11-04] MEDS ORDERED: CALMOSEPTINE OI71 GM TOPICAL (10:30)
[2017-11-04] MEDS ORDERED: NYSTATIN1 PWD TOPICAL (10:30)
[2017-11-04] MEDS ORDERED: SANTYL30 GM TOPICAL (10:30)
[2017-11-04] MEDS ORDERED: HUMULIN R100 U/ML SC (10:30)
[2017-11-04 11:45] VITALS: BP 140/78
== END 2017-11-04 14:59 | DRG 617 ==
LOC: D.ER 12:39 → D.MS 23:03 → D.EDHOLD 23:03 → D.M2 23:03 → D.ICU 23:03 → D.M2 10-11 07:59 → D.ICU 10-12 15:41 → D.MS 10-14 19:15 → D.ICU 10-24 19:41 → D.M2 10-27 13:21
PROVIDERS: Anesthesiology; Family Medicine; General Practice; Internal Medicine; Internal Medicine Gastroenterology; Internal Medicine Nephrology; Orthopaedic Surgery; Urology
PROC: 5A1D70Z Performance of Urinary Filtration, Intermittent, Less than 6 Hours Per Day (ICD-10-PCS; 2017-10-11)
PROC: 0Y6J0Z2 Detachment at Left Lower Leg, Mid, Open Approach (ICD-10-PCS; principal; 2017-10-12 12:15)
PROC: 0T7D7ZZ Dilation of Urethra, Via Natural or Artificial Opening (ICD-10-PCS; 2017-10-14)
PROC: 0VNSXZZ Release Penis, External Approach (ICD-10-PCS; 2017-10-14 15:00)
DX: E11.69 Type 2 diabetes mellitus with other specified complication (principal); M86.672 Other chronic osteomyelitis, left ankle and foot; I96 Gangrene, not elsewhere classified; D62 Acute posthemorrhagic anemia; I13.2 Hypertensive heart and chronic kidney disease with heart failure and with stage 5 chronic kidney disease, or end stage renal disease; E87.1 Hypo-osmolality and hyponatremia; F17.223 Nicotine dependence, chewing tobacco, with withdrawal; R18.8 Other ascites; D68.9 Coagulation defect, unspecified; B16.9 Acute hepatitis B without delta-agent and without hepatic coma; N39.0 Urinary tract infection, site not specified; E11.649 Type 2 diabetes mellitus with hypoglycemia without coma; D63.1 Anemia in chronic kidney disease; E11.22 Type 2 diabetes mellitus with diabetic chronic kidney disease; N18.6 End stage renal disease; Z99.2 Dependence on renal dialysis; I50.9 Heart failure, unspecified; J44.9 Chronic obstructive pulmonary disease, unspecified; K72.90 Hepatic failure, unspecified without coma; F41.8 Other specified anxiety disorders; D69.6 Thrombocytopenia, unspecified; E88.09 Other disorders of plasma-protein metabolism, not elsewhere classified; N47.1 Phimosis; N35.9 Urethral stricture, unspecified; G90.4 Autonomic dysreflexia; R53.2 Functional quadriplegia; K74.60 Unspecified cirrhosis of liver; K80.20 Calculus of gallbladder without cholecystitis without obstruction; K82.8 Other specified diseases of gallbladder